=== PATIENT | male | born 1945 | race Caucasian/White ===

== ENCOUNTER → 2018-07-21 | Outpatient (CLI) | payer MEDICARE ==
--- NOTE | 2018-07-21 15:41 | REP ---
MRI brain without contrast: History: Dizziness and memory loss. Mild cognitive impairment. No comparison study. There is a report of a CT study of the brain from May 26, 2018 interpreted as showing no acute intracranial pathology with some cerebral volume loss. Technique: Axial and sagittal imaging planes are utilized for T1 and T2-weighted scans. Sequences include spin-echo, fast spin echo, FLAIR, and diffusion weighted sequences. MRI findings: No bony calvarial lesion is seen. Craniocervical junction and upper cervical cord are normal in appearance. There is no MR evidence of paranasal sinus disease. No intraorbital abnormality is appreciated. There is mild generalized cerebral atrophy. No vascular abnormalities observed. There is no evidence to suggest acute ischemia or other cause of restricted diffusion on diffusion-weighted scans. There are mild periventricular and subcortical white matter T2 hyperintensities on FLAIR and turbo spin echo T2 images consistent with small vessel changes. There is no evidence of intracranial mass. No extra-axial fluid collection or infarction is seen. Impression: Mild generalized volume loss and small vessel changes. No acute intracranial abnormality. Electronically Signed by Keyon Davey MD 07/21/2018 04:00 P
== END ==
LOC: M RAD 14:22
PROVIDERS: ATTEND Nurse Practitioner Family
DX: G31.84 Mild cognitive impairment of uncertain or unknown etiology (principal); R90.82 White matter disease, unspecified

== ENCOUNTER → 2020-02-28 | Outpatient (CLI) | payer MEDICARE ==
[~2020-02-28] MED LIST: ISOVUE-370 76% 100ML VIAL As Ordered ONE
--- NOTE | 2020-03-02 16:04 | REP ---
CONTRAST ENHANCED CHEST CT CLINICAL: History of prostate carcinoma. TECHNIQUE: Axial contrast enhanced images from the thoracic inlet to the upper abdomen using 75 cc Isovue-370 intravenous contrast material with coronal and sagittal reformations. FINDINGS: The lung paulino demonstrate chronic age related interstitial changes with superimposed scattered rounded nodules measuring up to approximately 12 mm and consistent with metastatic disease given the history of prostate cancer. No focal consolidation or effusion. No pneumothorax. Tracheobronchial tree is patent. Mediastinum demonstrates mild to moderate generalized adenopathy with subcarinal lymph nodes measuring up to approximately 2.2 cm short axis diameter. Atherosclerotic changes to the thoracic aorta and coronary arteries noted without aortic aneurysm or cardiomegaly. No pericardial effusion. Generalized sclerotic changes are noted throughout the thoracic spine and scattered throughout the bilateral ribs as well as involving portions of the proximal left humerus and left scapula again consistent with skeletal metastases based on the history of prostate cancer. IMPRESSION: * Innumerable pulmonary metastases measuring up to approximately 11-12 mm. * Diffuse skeletal metastatic disease. MTDD
== END ==
LOC: M RAD 17:50
PROVIDERS: ATTEND Internal Medicine Medical Oncology
DX: C61 Malignant neoplasm of prostate (principal); C79.51 Secondary malignant neoplasm of bone
CPT/HCPCS: 71260; Q9967

== ENCOUNTER → 2020-08-09 | Outpatient (CLI) | payer MEDICARE ==
[~2020-08-09] MED LIST changes: +GASTROGRAFIN SOLUTION 30ML (Q9963) As Ordered ONE
--- NOTE | 2020-08-09 13:46 | REP ---
INDICATION: PROSTATE CA, METS TO BONE CT 1ST NM 2ND. COMPARISON: 02/28/2020. TECHNIQUE: Chest CT with IV contrast. FINDINGS: There are new small bilateral pleural effusions as an interval change. There are new zones of atelectasis/infiltrate in the right middle lobe and lingula. There are multiple pulmonary nodules as previously. Some of the previous nodules are obscured by the infiltrates in the middle lobe and lingula. Some of the nodules may have resolved. No definite new nodules are identified. There is no mediastinal, hilar are or axillary lymph node enlargement. The mediastinal and bilateral hilar adenopathy identified previously has decreased. Thoracic aorta is unremarkable. Cardiac size normal. No pericardial effusion. Numerous blastic metastases are again identified throughout almost all of the skeletal structures of the chest. This is unchanged. IMPRESSION: There are new areas of infiltrate in the right middle lobe and right lower lobe. There are new small bilateral pleural effusions. There are numerous lung nodules bilaterally. No definite new nodules are identified. Some of the previous nodules are obscured by the infiltrates. The mediastinal and hilar adenopathy has significantly improved. Numerous blastic metastases are again identified almost all of the skeletal structures. <Electronically signed by Fermin Amador > 08/09/20 [id number]
--- NOTE | 2020-08-09 13:59 | REP ---
INDICATION: PROSTATE CA, METS TO BONE CT 1ST NM 2ND. COMPARISON: Abdomen/pelvis CT dated 02/02/2020. TECHNIQUE: Abdomen pelvis CT with IV and bowel contrast. FINDINGS: Within the visualized lower lung paulino there are small bilateral pleural effusions as an interval change. The hepatic parenchyma, gallbladder, pancreas and spleen are normal size, unremarkable and unchanged. The adrenals are unremarkable. There is a 7.2 cm right renal lower pole cyst containing septations with calcifications along some of the septations inferiorly in the cyst. These calcifications appear somewhat thickened. This is again a Bosniak type 3 renal cyst. The left kidney is unremarkable. There is no hydronephrosis or perinephric stranding. Abdominal aorta is unremarkable. There is no periaortic adenopathy or mass. The bowel and mesentery are unremarkable. Pelvis: On the prior study the prostate was enlarged with irregular margins. There is a soft tissue density in the prostatic bed today that has significantly decreased in size containing tiny radiodensities. This may represent postsurgical or postradiation change or combination. There is no pelvic adenopathy or ascites. The bladder is unremarkable. Numerous blastic skeletal metastases there are again noted throughout all of the skeletal structures. There is a cystic lesion containing dense material in the intertrochanteric region of the left hip, unchanged, possibly a cystic metastasis. IMPRESSION: There are new small bilateral pleural effusions. There is a Bosniak type 3 right renal cyst, unchanged. There are changes in the prostatic bed as described which could be postsurgical, postradiation or combination. Numerous blastic metastases are again identified. <Electronically signed by Fermin Amador > 08/09/20 [id number]
--- NOTE | 2020-08-09 14:08 | REP ---
INDICATION: PROSTATE CA, METS TO BONE CT 1ST NM 2ND. COMPARISON: None. TECHNIQUE/RADIOTRACER AND DOSE: The study is performed with 21.3 mCi of technetium 99 M labeled M DP. FINDINGS: There are innumerable foci of increased skeletal uptake in the right frontal calvarium, right facial bones likely angle of the mandible, throughout the spine including cervical spine thoracic spine lumbar spine, right distal clavicle and acromion process, left proximal humerus, multiple bilateral ribs, pelvis bilaterally and hips bilaterally. IMPRESSION: In numeral foci of skeletal uptake compatible with widespread skeletal metastatic disease. <Electronically signed by Fermin Amador > 08/09/20 [id number]
== END ==
LOC: M RAD 08:29
PROVIDERS: ATTEND Nurse Practitioner
DX: C61 Malignant neoplasm of prostate (principal); J90 Pleural effusion, not elsewhere classified; R91.8 Other nonspecific abnormal finding of lung field
CPT/HCPCS: 71260; 74177; 78306; A9503; Q9963; Q9967

== ENCOUNTER → 2020-11-29 | Outpatient (CLI) | payer MEDICARE ==
--- NOTE | 2020-11-29 11:53 | REP ---
INDICATION: STAGING METASTIC PROSTATE CA. COMPARISON: Multiple the latest 08/10/2019 TECHNIQUE: Standard helical technique after the intravenous administration of 100 cc Isovue 370. Oral bowel preparatory contrast was administered prior to the exam. FINDINGS: The liver, gallbladder, spleen, pancreas, adrenal glands, and kidneys are unchanged. Once again, there is a right renal cystic lesion which is unchanged. Dense calcifications are again seen along its stevenson. There is no measurable contrast-enhancement. The abdominal aorta and para-aortic regions are unchanged. There is no adenopathy. The bowel loops and the mesenteries are unchanged. Once again, there is a duodenal diverticulum. There is no intra-abdominal mass or adenopathy. There is no free fluid or free air. Bone window technique throughout the examination again shows diffuse widespread skeletal blastic metastasis. IMPRESSION: No significant change compared to the prior exam with findings as described above. There is a Bosniak class 2 F right renal cystic lesion which requires yearly follow-up for 5 years. There is diffuse widespread skeletal blastic metastasis. <Electronically signed by Jermaine Salas > 11/29/20 [id number]
--- NOTE | 2020-11-29 11:57 | REP ---
INDICATION: PROSTATE CA COMPARISON: Multiple the latest 08/09/2020 TECHNIQUE: Standard helical technique after the intravenous administration of 100 cc Isovue 370. FINDINGS: The mediastinum and pulmonary carina are stable. The small bilateral pleural effusions seen previously have resolved. There is no pericardial effusion. The imaged osseous structures again shows diffuse widespread blastic skeletal metastasis. Evaluation of the lung paulino shows an unchanged asymmetric density in the right middle lobe peripherally. The asymmetric lingular density seen previously has improved. No new abnormal nodules, masses, or opacities have developed. IMPRESSION: 1. Resolved pleural effusions. 2. Improved lung paulino as described above. 3. Other findings as described above. <Electronically signed by Jermaine Salas > 11/29/20 [id number]
--- NOTE | 2020-11-29 14:54 | REP ---
INDICATION: PROSTATE CA. COMPARISON: Comparison radionuclide bone scan study is from August 09, 2020.. TECHNIQUE/RADIOTRACER AND DOSE: 22.0 mCi of Technetium-99m MDP was injected and standard whole-body bone scanning is acquired. FINDINGS: There are numerous foci of intensely increased uptake focally dispersed in the axial skeleton consistent with fairly widespread skeletal metastatic disease. The pattern is similar to the prior study of August 09, 2020. In fact, on detailed review, I cannot identify any new lesions in the existing lesions are unchanged in avidity and a relative size. There is uptake in bilateral kidneys and in the urinary bladder. IMPRESSION: Widespread skeletal metastatic disease pattern scintigraphically unchanged from the August 09, 2020 study.. <Electronically signed by Diaz Davey > 11/29/20 [id number]
== END ==
LOC: M RAD 09:20
PROVIDERS: ATTEND Internal Medicine Medical Oncology
DX: C61 Malignant neoplasm of prostate (principal)
CPT/HCPCS: 71260; 74177; 78306; A9503; Q9963; Q9967

== ENCOUNTER 2020-12-09 21:07 | Inpatient (IN) | payer MEDICARE ==
[~2020-12-09] VITALS: Ht 172.7 cm; Wt 80.0 kg
[2020-12-09] MEDS ORDERED: ARIC1TAB2 PO (21:29)
[2020-12-09] MEDS ORDERED: MIRA3350 PO (21:29)
[2020-12-09] MEDS ORDERED: XGEVINJ SC (21:29)
[2020-12-09] MEDS ORDERED: ZINC1TAB2 PO (21:29)
[2020-12-09] MEDS ORDERED: DULO1CAP4 PO (21:29)
[2020-12-09] MEDS ORDERED: CENT1TAB PO (21:29)
[2020-12-09] MEDS ORDERED: HYDR-3713 PO (21:29)
[2020-12-09] MEDS ORDERED: ESOM1CAP5 PO (21:29)
[2020-12-09] MEDS ORDERED: MAGN200T PO (21:29)
[2020-12-09] MEDS ORDERED: LUPR45IN IM (21:29)
[2020-12-09] MEDS ORDERED: ATOR1TAB21 PO (21:29)
[2020-12-09] MEDS ORDERED: NAME10TA PO (21:29)
[2020-12-09] MEDS ORDERED: VITA500C24 PO (21:29)
[2020-12-09] MEDS ORDERED: PROBCAP14 PO (21:29)
[2020-12-09] MEDS ORDERED: FLOM0.4C39 PO (21:29)
[2020-12-09] MEDS ORDERED: MORP-69 PO (21:29)
[2020-12-09] MEDS ORDERED: CO Q100C2 PO (21:29)
[2020-12-09] MEDS ORDERED: ASPI81TA26 PO (21:29)
[2020-12-09] MEDS ORDERED: FLUT15.820 NARES (21:29)
[2020-12-09 22:25] LABS: BASO # 0.1 10^3/uL (0.0-0.2); BASO % 0.6 % (0.0-1.0); EOS % 0.4 % (0.0-3.0); HEMATOCRIT 34.7 % (42.0-52.0); HEMOGLOBIN 11.7 g/dl (13.5-17.5); LYMPH # 1.1 10^3/uL (1.5-5.0); LYMPH % 14.2 % (24.0-44.0); MEAN CORPUSCULAR HEMOGLOBIN 30.3 pg (27.0-33.0); MEAN CORPUSCULAR HGB CONC 33.7 g/dl (32.0-36.5); MEAN CORPUSCULAR VOLUME 89.9 fl (80.0-96.0); MONO % 12.6 % (2.0-8.0); NEUTROPHILS # 5.8 10^3/uL (1.5-8.5); NEUTROPHILS % 71.8 % (36.0-66.0); PLATELET COUNT, AUTOMATED 191 10^3/uL (150-450); RED BLOOD COUNT 3.86 10^6/uL (4.30-6.10)
[2020-12-09 23:03] LABS: ALBUMIN 3.7 GM/DL (3.2-5.2); ALT/SGPT 40 U/L (12-78); BILIRUBIN,DIRECT 0.2 MG/DL (0.0-0.2); BILIRUBIN,TOTAL 0.5 MG/DL (0.2-1.0); BLOOD UREA NITROGEN 23 MG/DL (7-18); CALCIUM LEVEL 8.2 MG/DL (8.8-10.2); CARBON DIOXIDE LEVEL 28 MEQ/L (21-32); CHLORIDE LEVEL 102 MEQ/L (98-107); CK-MB VALUE MASS < 1.0 NG/ML (<3.6); CPK CREATINE PHOSPHOKINASE 108 U/L (39-308); CREATININE FOR GFR 1.01 MG/DL (0.70-1.30); GLOMERULAR FILTRATION RATE > 60.0 (>42); GLUCOSE, FASTING 139 MG/DL (70-100); MB/CK RELATIVE INDEX 0.93 (< OR =4); POTASSIUM SERUM 4.3 MEQ/L (3.5-5.1); SODIUM LEVEL 136 MEQ/L (136-145); THYROID STIMULATING HORMONE 0.955 uIU/ML (0.358-3.740); TROPONIN I < 0.02 NG/ML (< 0.10)
[2020-12-09] MEDS ORDERED: IBUPROFEN 600MG TAB PO ONE (23:10)
--- NOTE | 2020-12-10 00:27 | REPVR ---
PROCEDURE INFORMATION: Exam: CT Head Without Contrast Exam date and time: 12/09/2020 11:38 PM Age: 75 years old Clinical indication: Pain; Headache not specified; Additional info: Headache lethargy TECHNIQUE: Imaging protocol: Computed tomography of the head without contrast. Radiation optimization: All CT scans at this facility use at least one of these dose optimization techniques: automated exposure control; mA and/or kV adjustment per patient size (includes targeted exams where dose is matched to clinical indication); or iterative reconstruction. COMPARISON: 1. MRI-Brain without Contrast 2018-07-21 14:39 2. NM Bone Scan Whole Body 2020-11-29 13:07 FINDINGS: Brain: Diffuse mild cerebral age related volume loss. Mild patchy low attenuation in the white matter compatible with mild chronic small vessel ischemic disease. No midline shift, mass, fluid collection, or evidence of hemorrhage. Cerebral ventricles: Ventricular enlargement proportional to volume loss. Paranasal sinuses: Visualized sinuses are unremarkable. No fluid levels. Mastoid air cells: Visualized mastoid air cells are well aerated. Bones/joints: Vague area of increased sclerosis within the right frontal bone appears unchanged. Soft tissues: Unremarkable. IMPRESSION: 1. Mild involutional changes, no acute intracranial abnormality. 2. Vague area of increased sclerosis within the right frontal bone appears unchanged. Correlate to exclude the possibility of blastic metastases. Electronically signed by: Demetrio Sosa On 12/10/2020 00:27:35 AM
--- NOTE | 2020-12-10 00:28 | REPVR ---
PROCEDURE INFORMATION: Exam: XR Chest Exam date and time: 12/09/2020 11:37 PM Age: 75 years old Clinical indication: Other: Fever cough TECHNIQUE: Imaging protocol: XR of the chest. Views: 2 views. COMPARISON: 1. CT Chest with contrast 2020-11-29 11:[address] Chest with contrast 2020-08-09 10:[address] Chest with contrast 2020-02-28 18:37 4. NM Bone Scan Whole Body 2020-11-29 13:07 FINDINGS: Lungs: Dependent subsegmental pulmonary atelectasis. Mild peripheral lingular and middle lobe opacities. Pleural spaces: Unremarkable. No pleural effusion. No pneumothorax. Heart/Mediastinum: Unremarkable. No cardiomegaly. Bones/joints: Diffuse sclerotic bones, correlate for diffuse skeletal metastases. IMPRESSION: 1. Mild peripheral lingular and middle lobe opacities. 2. Diffuse sclerotic bones, correlate for diffuse skeletal metastases. Electronically signed by: Demetrio Sosa On 12/10/2020 00:28:23 AM
[2020-12-10] MEDS ORDERED: cefTRIAXone SOD 1 GM in D5W MINI-BAG PLUS 50 ML IV ONE (00:35)
[2020-12-10] MEDS ORDERED: IPRATROPIUM 0.5MG/ALBUTEROL 2.5MG INH SOL UD 3ML (DUONEB) NEB PRN (00:45)
[2020-12-10] MEDS ORDERED: DULO30CA47 PO (01:01)
[2020-12-10] MEDS ORDERED: ATEN25TA PO (01:07)
[2020-12-10] MEDS ORDERED: FURO40TA2 PO (01:07)
[2020-12-10] MEDS ORDERED: VIAC1CHW PO (01:07)
[2020-12-10] MEDS ORDERED: MONT10TA10 PO (01:07)
[2020-12-10] MEDS ORDERED: FAMO40TA3 PO (01:07)
[2020-12-10] MEDS ORDERED: SENN-23 PO (01:07)
--- NOTE | 2020-12-10 01:38 | HPEPDOC ---
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 Patient states that his symptoms began approx 3 days ago with sore throat and nonproductive cough. Patient states that his sore throat has improved some but is still having his cough and has developed progressive weakness and today his family noted him to have fevers. Patient states that he has recently traveled to his family camp for a day and was at the fair last week, however cannot explicitly name any sick contacts. Patient, at the time of my exam, denies productive cough, hemoptysis, sob, chest pain, chest tightness, abd pain, n/v/d/c, dysuria, recent falls, lower leg edema. Patient found to have lingula consolidation on chest x-ray in the ED.] PAST MEDICAL HISTORY: 1. [See HPI PAST SURGICAL HISTORY: 1. [B/l cataract removal]. 2. [Cardiac stent placement]. 3. [Prostate biopsy]. SOCIAL HISTORY: Tobacco use:[Denies] ETOH: [Denies] Illicit drug use: [Denies] FAMILY HISTORY: Reviewed - none pertinent ALLERGIES: Please see below. REVIEW OF SYSTEMS: CONSTITUTIONAL: [Denies rigors, dizziness]. HEENT: [See HPI]. CARDIOVASCULAR: [See HPI]. RESPIRATORY: [See HPI]. GASTROINTESTINAL: [See HPI]. GENITOURINARY: [See HPI]. SKIN: [Denies rash]. MUSCULOSKELETAL: [Denies acute joint/back pain]. NEUROLOGICAL: [Denies syncope, paresthesias]. ENDOCRINE: [Hx of DM]. HEMATOLOGIC/LYMPHATIC: [Hx of metastatic disease]. HOME MEDICATIONS: Please see below. PHYSICAL EXAMINATION: VITAL SIGNS: Please see below. GENERAL APPEARANCE: [This is an alert and oriented 75 y/o male who is pleasantly confused at times. Patient does not appear to be in any respiratory distress.]. HEENT: [No mass or lesion. EOMI. no scleral icterus. Nares patent. Oral mucosa moist]. CARDIOVASCULAR: [Regular rate, rhythm. No murmurs, rubs, gallops]. LUNGS: [Good air flow b/l. No wheezing, rales, rhonchi]. ABDOMEN: [Soft, nontender]. MUSCULOSKELETAL: [No joint deformity]. EXTREMITIES: [Trace edema to b/l lower extremities. No overlying skin changes. Pulses intact.]. NEUROLOGICAL: [Speech clear. A+Ox3 but confused at times. No focal deficits]. PSYCHIATRIC: [Mood and affect appear appropriate.]. LABORATORY DATA: See below. IMAGING: [CXR: FINDINGS: Lungs: Dependent subsegmental pulmonary atelectasis. Mild peripheral lingular and middle lobe opacities. Pleural spaces: Unremarkable. No pleural effusion. No pneumothorax. Heart/Mediastinum: Unremarkable. No cardiomegaly. Bones/joints: Diffuse sclerotic bones, correlate for diffuse skeletal metastases. IMPRESSION: 1. Mild peripheral lingular and middle lobe opacities. 2. Diffuse sclerotic bones, correlate for diffuse skeletal metastases. Head CT: FINDINGS: Brain: Diffuse mild cerebral age related volume loss. Mild patchy low attenuation in the white matter compatible with mild chronic small vessel ischemic disease. No midline shift, mass, fluid collection, or evidence of hemorrhage. Cerebral ventricles: Ventricular enlargement proportional to volume loss. Paranasal sinuses: Visualized sinuses are unremarkable. No fluid levels. Mastoid air cells: Visualized mastoid air cells are well aerated. Bones/joints: Vague area of increased sclerosis within the right frontal bone appears unchanged. Soft tissues: Unremarkable. IMPRESSION: 1. Mild involutional changes, no acute intracranial abnormality. 2. Vague area of increased sclerosis within the right frontal bone appears unchanged. Correlate to exclude the possibility of blastic metastases. ] MICROBIOLOGY: Please see below. ASSESSMENT: [This is a 75 y/o male with a pmh of stage IV prostate ca s/p chemo currently on hormonal therapy, asthma, cad s/p stent placement dm and asthma who presents to the ED with his daughter with cc of fevers, weakness and cough x3 days. Chest x ray performed in the ED is showing a community acquired pne umonia.]. . PLAN: 1. [CAP - Respiratory panel + for RSV, so potentially viral pneumonia - Only sirs criteria in the patient is temperature with tmax of 101.1. No need for fluid boluses at this time - Rocephin and azithromycin given in ed. Will switch to rocephin and doxy on the floor - tylenol for fevers - Blood cultures taken - Incentive spirometry - no need for supplemental o2 at this time - admit to med surg for iv abx 2. Metastatic prostate ca - Patient currently on hormonal therapy every 3 months outpatient - Can continue norco, morphine for pain - continue flomax 3. Asthma - Patient does not appear to be in acute exacerbation - Continue at home albuterol, flonase, montelukast - duonebs as needed 4. HTN - continue atenolol, furosemide 5. GERD - continue famotidine, omeprazole 6. Dementia - continue donepezil, memantine 7. Depression/anxiety - continue cymbalta DVT prophylaxis - lovenox ordered]. Vital Signs Vital Signs Date Time Temp Pulse Resp B/P (MAP) Pulse Ox O2 Delivery O2 Flow Rate FiO2 12/10/20 00:52 99.3 81 18 95 Room Air 12/10/20 00:45 152/67 (95) Laboratory Data Labs 24H Laboratory Tests 2 12/09/20 22:02: Immature Granulocyte % (Auto) 0.4, Neutrophils (%) (Auto) 71.8H, Lymphocytes (%) (Auto) 14.2L, Monocytes (%) (Auto) 12.6H, Eosinophils (%) (Auto) 0.4, Basophils (%) (Auto) 0.6, Neutrophils # (Auto) 5.8, Lymphocytes # (Auto) 1.1L, Monocytes # (Auto) 1.0H, Eosinophils # (Auto) 0.0, Basophils # (Auto) 0.1, Nucleated Red Blood Cells % (auto) 0.0, Anion Gap 6L, Glomerular Filtration Rate > 60.0, Calcium Level 8.2L, Total Bilirubin 0.5, Direct Bilirubin 0.2, Aspartate Amino Transf (AST/SGOT) 35, Alanine Aminotransferase (ALT/SGPT) 40, Alkaline Phosphatase 104, Total Creatine Kinase 108, Creatine Kinase MB < 1.0, Creatine Kinase MB Relative Index 0.93, Troponin I < 0.02, Total Protein 7.0, Albumin 3.7, Albumin/Globulin Ratio 1.1, Thyroid Stimulating Hormone (TSH) 0.955 12/09/20 22:34: POC Group A Strep Rapid Screen NEGATIVE 12/09/20 23:26: Urine Color YELLOW, Urine Appearance CLEAR, Urine pH 6.0, Urine Specific [place] 1.023, Urine Protein NEGATIVE, Urine Glucose (UA) 1+H, Urine Ketones NEGATIVE, Urine Blood NEGATIVE, Urine Nitrite NEGATIVE, Urine Bilirubin NEGATIVE, Urine Urobilinogen 2.0H, Urine Leukocyte Esterase NEGATIVE, Urine WBC (Auto) 1, Urine RBC (Auto) 3, Urine Hyaline Casts (Auto) 0, Urine Bacteria (Auto) NEGATIVE, Urine Squamous Epithelial Cells 0, Urine Transitional Epithelial Cells <1, Urine Mucus (Auto) SMALL, Urine Sperm (Auto) CBC/BMP Laboratory Tests 12/09/20 22:02 Microbiology Microbiology 12/09/20 Respiratory Virus Panel (PCR) ([facility]) - Final, Complete Respiratory Syncytial Virus 12/09/20 Blood Culture, Received Pending 12/09/20 Blood Culture, Received Pending Home Medications Scheduled Ascorbic Acid (Vitamin C) 500 Mg Capsule, 500 MG PO DAILY Aspirin (Aspirin EC) 81 Mg Tablet.dr, 81 MG PO QHS Atenolol (Atenolol) 25 Mg Tablet, 12.5 MG PO QHS Atorvastatin Calcium (Atorvastatin Calcium) 20 Mg Tablet, 20 MG PO QHS Calcium Carb/Vitamin D3/Vit K1 (Viactiv 650 mg-12.5 Mcg Chew) 1 Each Tab.chew, 1 EACH PO BID Donepezil HCl (Aricept) 10 Mg Tablet, 10 MG PO QHS Duloxetine HCl (Duloxetine HCl) 30 Mg Capsule.dr, 30 MG PO QHS Esomeprazole Magnesium (Esomeprazole Magnesium) 40 Mg Capsule.dr, 40 MG PO DAILY Famotidine (Famotidine) 40 Mg Tablet, 40 MG PO QPM Fluticasone Propionate (Fluticasone Propionate) 15.8 Ml [place].susp, 2 SPRAY NARES DAILY Furosemide (Furosemide) 40 Mg Tablet, 40 MG PO DAILY Lactobacillus Acidophilus (Probiotic) 1 Each Capsule, 1 CAP PO DAILY Leuprolide Acetate (Lupron Depot) 45 Mg Syringekit, 45 MG IM zheng three months Magnesium (Magnesium) 200 Mg Tablet, 400 MG PO QPM Memantine HCl (Namenda) 10 Mg Tablet, 10 MG PO DAILY Montelukast Sodium (Montelukast Sodium) 10 Mg Tablet, 10 MG PO QHS Multivit-Min/FA/Lycopen/Lutein (Centrum Silver Tablet) 1 Each Tablet, 1 TAB PO DAILY Sennosides/Docusate Sodium (Senna-S Tablet) 1 Each Tablet, 1 TAB PO QAM Tamsulosin HCl (Flomax) 0.4 Mg Capsule, 0.4 MG PO QPM Ubidecarenone (Co Q-10) 100 Mg Capsule, 100 MG PO DAILY Zinc (Zinc) 50 Mg Tablet, 50 MG PO DAILY Scheduled PRN Hydrocodone/Acetaminophen (Hydrocodone-Acetamin 5-325 mg) 1 Each Tablet, 1 TAB PO Q4-6HP PRN for pain Morphine Sulfate (Morphine Sulfate ER) 15 Mg Tablet.er, 15 MG PO QHS PRN for pain Polyethylene Glycol 3350 (Miralax) 119 Gm Powder, 17 GM PO DAILY PRN for CONSTIPATION dilute in 8 ounces of water or juice Allergies Coded Allergies: lidocaine (Verified Allergy, Severe, anaphylaxsis, 12/09/20) A-FIB/CHADSVASC A-FIB History Current/History of A-Fib/PAF?: No MYA NOLASCO Dec 10, 2020 01:38
[2020-12-10] MEDS ORDERED: MORPHINE 15 MG SA TAB PO PRN (01:40)
[2020-12-10] MEDS ORDERED: MIRALAX *UNIT DOSE* 17GM PACKET PO PRN (01:40)
[2020-12-10] MEDS ORDERED: NORCO, ANEXSIA 5/325MG TABLET (HYDROcodone/ACETAMINOPHEN) PO PRN (01:40)
[2020-12-10] MEDS ORDERED: AZITHROMYCIN INJ 500 MG, VIAL MATE ADAPTER 1 EACH in NS 250 ML IV ONE (02:00)
[2020-12-10] MEDS: ASPIRIN 81MG ENTERIC TABLET PO SCH ×2 (03:48→22:07)
[2020-12-10] MEDS: FAMOTIDINE 20 MG TAB PO SCH ×2 (03:48→22:07)
[2020-12-10] MEDS: DOXYCYCLINE HYCLATE 100 MG in D5W MINI-BAG PLUS 100 ML IV SCH ×2 (03:48→15:58)
[2020-12-10] MEDS: DULoxetine 30 MG CAP (CYMBALTA) PO SCH ×2 (03:49→22:07)
[2020-12-10] MEDS: ATORVASTATIN 20 MG TAB PO SCH ×2 (03:49→22:07)
[2020-12-10] MEDS: DONEPEZIL 5 MG TAB PO SCH ×2 (03:49→22:07)
[2020-12-10] MEDS: TAMSULOSIN 0.4 MG CAP PO SCH ×2 (03:49→22:07)
[2020-12-10] MEDS: MONTELUKAST 10 MG TAB PO SCH ×2 (03:49→22:07)
[2020-12-10] MEDS: ATENOLOL 12.5MG PER 1/2 TABLET PO SCH ×2 (04:36→22:07)
[2020-12-10 06:00] VITALS: BP 151/67
[2020-12-10 06:01] LABS: BASO % 0.4 % (0.0-1.0); EOS % 0.4 % (0.0-3.0); HEMATOCRIT 31.1 % (42.0-52.0); HEMOGLOBIN 10.5 g/dl (13.5-17.5); LYMPH # 0.9 10^3/uL (1.5-5.0); MEAN CORPUSCULAR HEMOGLOBIN 30.2 pg (27.0-33.0); MEAN CORPUSCULAR HGB CONC 33.8 g/dl (32.0-36.5); MEAN CORPUSCULAR VOLUME 89.4 fl (80.0-96.0); MONO # 0.8 10^3/uL (0.0-0.8); NEUTROPHILS # 3.3 10^3/uL (1.5-8.5); PLATELET COUNT, AUTOMATED 155 10^3/uL (150-450); RED BLOOD COUNT 3.48 10^6/uL (4.30-6.10)
[2020-12-10 06:12] LABS: INR 1.06
[2020-12-10 06:13] LABS: PARTIAL THROMBOPLASTIN TIME 29.7 SECONDS (24.2-38.5)
[2020-12-10 06:26] LABS: BLOOD UREA NITROGEN 21 MG/DL (7-18); CALCIUM LEVEL 7.7 MG/DL (8.8-10.2); CARBON DIOXIDE LEVEL 27 MEQ/L (21-32); CHLORIDE LEVEL 106 MEQ/L (98-107); CREATININE FOR GFR 0.86 MG/DL (0.70-1.30); GLOMERULAR FILTRATION RATE > 60.0 (>42); GLUCOSE, FASTING 133 MG/DL (70-100); POTASSIUM SERUM 3.7 MEQ/L (3.5-5.1); SODIUM LEVEL 139 MEQ/L (136-145)
[2020-12-10] MEDS: IPRATROPIUM 0.5MG/ALBUTEROL 2.5MG INH SOL UD 3ML (DUONEB) NEB SCH ×4 (07:10→20:30)
[2020-12-10] MEDS: ENOXAPARIN 40MG/0.4ML SYRINGE (J1650 PER 10MG) SC SCH (09:42)
[2020-12-10] MEDS: FUROSEMIDE 40 MG TAB PO SCH (09:44)
[2020-12-10] MEDS: SENOKOT S TAB PO SCH (09:44)
[2020-12-10] MEDS: MEMANTINE 5MG TABLET (NAMENDA) PO SCH (09:44)
[2020-12-10] MEDS: ASCORBIC ACID 500 MG TAB PO SCH (09:44)
[2020-12-10] MEDS: OMEPRAZOLE 20 MG CAP PO SCH (09:44)
[2020-12-10] MEDS: FLUTICASONE PROP 0.05% NASAL SPRAY 16 GM (FLONASE) NARES SCH (11:47)
[2020-12-10 14:00] VITALS: BP 140/75
[2020-12-10] MEDS: ACETAMINOPHEN TAB 650MG DOSE (2X325MG) PO PRN (14:30)
--- NOTE | 2020-12-10 17:30 | IPNPDOC ---
Subjective Date Seen The patient was seen on 12/10/20. Subjective Chief Complaint/HPI Mr. Puckett is a 75 year old male with stage IV prostate CA s/p chemo on hormonal therapy, asthma, DM, and asthma who presents for fever, weakness, and cough. This morning, he denies any chest pain or dyspnea. This afternoon around 2PM, patient had another fever of 101.6 Objective Physical Examination General Exam: Positive: Alert, Cooperative Eye Exam: Negative: Sclera icteric ENT Exam: Positive: Atraumatic Neck Exam: Positive: Supple Chest Exam: Positive: Clear to auscultation Heart Exam: Positive: Rate Normal, Regular Rhythm Abdomen Exam: Positive: Normal bowel sounds, Soft; Negative: Tenderness Extremity Exam: Negative: Edema Neuro Exam: Positive: Normal Speech Psych Exam: Positive: Mood NL Assessment /Plan Assessment Mr. Puckett is a 75 year old male with stage IV prostate CA s/p chemo on hormonal therapy, asthma, DM, and asthma who presents for fever, weakness, and cough. Patient's RSV was positive. CXR demonstrated opacities, so patient was admitted for antibiotics. Will order a procalcitonin for possible de-escalation of antibiotics. Otherwise, ordered PT for ambulation. Plan/VTE VTE Prophylaxis Ordered?: Yes Plan 1. Pneumonia -CAP vs RSV pneumonia -No leukocytosis or hypoxia, but fever and CXR opacity -Pending procalcitonin -Continue Rocephin and doxycycline day 1. 2. Metastatic prostate CA -Continue norco and morphine for pain control -Continue tamsulosin -Patient to receiving hormonal therapy every 3 months as outpatient 3. Asthma -Stable -Continue Flonase and montelukast -PRN duonebs 4. Hypertension -Continue atenolol and furosemide 5. GERD -Continue famotidine and omeprazole 6. Dementia -Continue donepezil and memantine 7. Depression/anxiety -Continue Cymbalta 8. DVT ppx -Lovenox Disposition: Pending improvement in fever and procalcitonin results VS, I&O, 24H, Fishbone Vital Signs/I&O Vital Signs Date Time Temp Pulse Resp B/P (MAP) Pulse Ox O2 Delivery O2 Flow Rate FiO2 12/10/20 15:20 100.9 12/10/20 14:00 102 18 140/75 (96) 93 Room Air I&O- Last 24 Hours up to 6 AM 12/10/20 06:00 Intake Total 665 ml Balance 665 ml Laboratory Data 24H LABS Laboratory Tests 2 12/09/20 22:02: Immature Granulocyte % (Auto) 0.4, Neutrophils (%) (Auto) 71.8H, Lymphocytes (%) (Auto) 14.2L, Monocytes (%) (Auto) 12.6H, Eosinophils (%) (Auto) 0.4, Basophils (%) (Auto) 0.6, Neutrophils # (Auto) 5.8, Lymphocytes # (Auto) 1.1L, Monocytes # (Auto) 1.0H, Eosinophils # (Auto) 0.0, Basophils # (Auto) 0.1, Nucleated Red Blood Cells % (auto) 0.0, Anion Gap 6L, Glomerular Filtration Rate > 60.0, Calcium Level 8.2L, Total Bilirubin 0.5, Direct Bilirubin 0.2, Aspartate Amino Transf (AST/SGOT) 35, Alanine Aminotransferase (ALT/SGPT) 40, Alkaline Phosphatase 104, Total Creatine Kinase 108, Creatine Kinase MB < 1.0, Creatine Kinase MB Relative Index 0.93, Troponin I < 0.02, Total Protein 7.0, Albumin 3.7, Albumin/Globulin Ratio 1.1, Thyroid Stimulating Hormone (TSH) 0.955 12/09/20 22:34: POC Group A Strep Rapid Screen NEGATIVE 12/09/20 23:26: Urine Color YELLOW, Urine Appearance CLEAR, Urine pH 6.0, Urine Specific [place] 1.023, Urine Protein NEGATIVE, Urine Glucose (UA) 1+H, Urine Ketones NEGATIVE, Urine Blood NEGATIVE, Urine Nitrite NEGATIVE, Urine Bilirubin NEGATIVE, Urine Urobilinogen 2.0H, Urine Leukocyte Esterase NEGATIVE, Urine WBC (Auto) 1, Urine RBC (Auto) 3, Urine Hyaline Casts (Auto) 0, Urine Bacteria (Auto) NEGATIVE, Urine Squamous Epithelial Cells 0, Urine Transitional Epithelial Cells <1, Urine Mucus (Auto) SMALL, Urine Sperm (Auto) 12/10/20 05:45: 12/10/20 05:47: Immature Granulocyte % (Auto) 0.2, Neutrophils (%) (Auto) 66.0, Lymphocytes (%) (Auto) 18.0L, Monocytes (%) (Auto) 15.0H, Eosinophils (%) (Auto) 0.4, Basophils (%) (Auto) 0.4, Neutrophils # (Auto) 3.3, Lymphocytes # (Auto) 0.9L, Monocytes # (Auto) 0.8, Eosinophils # (Auto) 0.0, Basophils # (Auto) 0.0, Nucleated Red Blood Cells % (auto) 0.0, Prothrombin Time 14.0, Prothromb Time International Ratio 1.06, Activated Partial Thromboplast Time 29.7, Anion Gap 6L, Glomerular Filtration Rate > 60.0, Calcium Level 7.7L CBC/BMP Laboratory Tests 12/09/20 22:02 12/10/20 05:47 Microbiology Microbiology 12/09/20 Respiratory Virus Panel (PCR) ([facility]) - Final, Complete Respiratory Syncytial Virus 12/09/20 Blood Culture, Received Pending 12/09/20 Blood Culture, Received Pending YOMAIRA MARQUEZ DO Dec 10, 2020 17:30
[2020-12-10 22:00] VITALS: BP 145/71
[2020-12-11] MEDS ORDERED: cefTRIAXone SOD 2 GM in D5W MINI-BAG PLUS 50 ML IV SCH (01:00)
[2020-12-11] MEDS: DOXYCYCLINE HYCLATE 100 MG in D5W MINI-BAG PLUS 100 ML IV SCH (04:32)
[2020-12-11 06:00] VITALS: BP 119/59
[2020-12-11 06:09] LABS: BASO % 0.4 % (0.0-1.0); HEMATOCRIT 29.6 % (42.0-52.0); HEMOGLOBIN 9.9 g/dl (13.5-17.5); LYMPH # 0.8 10^3/uL (1.5-5.0); LYMPH % 14.6 % (24.0-44.0); MEAN CORPUSCULAR HEMOGLOBIN 29.8 pg (27.0-33.0); MEAN CORPUSCULAR HGB CONC 33.4 g/dl (32.0-36.5); MEAN CORPUSCULAR VOLUME 89.2 fl (80.0-96.0); MONO # 0.6 10^3/uL (0.0-0.8); MONO % 11.4 % (2.0-8.0); NEUTROPHILS # 3.8 10^3/uL (1.5-8.5); NEUTROPHILS % 73.2 % (36.0-66.0); PLATELET COUNT, AUTOMATED 150 10^3/uL (150-450); RED BLOOD COUNT 3.32 10^6/uL (4.30-6.10); WHITE BLOOD COUNT 5.2 10^3/uL (4.0-10.0)
[2020-12-11 06:33] LABS: BLOOD UREA NITROGEN 17 MG/DL (7-18); CALCIUM LEVEL 7.3 MG/DL (8.8-10.2); CARBON DIOXIDE LEVEL 25 MEQ/L (21-32); CHLORIDE LEVEL 104 MEQ/L (98-107); CREATININE FOR GFR 0.79 MG/DL (0.70-1.30); GLOMERULAR FILTRATION RATE > 60.0 (>42); GLUCOSE, FASTING 150 MG/DL (70-100); POTASSIUM SERUM 3.7 MEQ/L (3.5-5.1); SODIUM LEVEL 137 MEQ/L (136-145)
[2020-12-11] MEDS: IPRATROPIUM 0.5MG/ALBUTEROL 2.5MG INH SOL UD 3ML (DUONEB) NEB SCH ×3 (07:30→16:00)
[2020-12-11] MEDS: OMEPRAZOLE 20 MG CAP PO SCH (08:25)
[2020-12-11] MEDS: ASCORBIC ACID 500 MG TAB PO SCH (08:25)
[2020-12-11] MEDS: SENOKOT S TAB PO SCH (08:25)
[2020-12-11] MEDS: ENOXAPARIN 40MG/0.4ML SYRINGE (J1650 PER 10MG) SC SCH (08:25)
[2020-12-11] MEDS: FLUTICASONE PROP 0.05% NASAL SPRAY 16 GM (FLONASE) NARES SCH (08:26)
[2020-12-11] MEDS: MEMANTINE 5MG TABLET (NAMENDA) PO SCH (08:26)
[2020-12-11] MEDS: FUROSEMIDE 40 MG TAB PO SCH (08:26)
[2020-12-11] MEDS: ACETAMINOPHEN TAB 650MG DOSE (2X325MG) PO PRN (08:27)
[2020-12-11] MEDS ORDERED: DOXY100T PO (11:15)
[2020-12-11] MEDS ORDERED: CEFD300CAP PO (11:15)
[2020-12-11] MEDS ORDERED: CALC200T15 PO (15:37)
--- NOTE | 2020-12-11 15:45 | DS.PDOC ---
Discharge Summary General Date of Admission Dec 10, 2020 at 00:40 Date of Discharge Dec 11, 2020 Discharge Summary PROCEDURES PERFORMED DURING STAY: None ADMITTING DIAGNOSES: 1. Pneumonia 2. Metastatic prostate CA with mets to bones (receiving hormonal therapy) 3. Asthma 4. Hypertension 5. GERD 6. Dementia 7. Depression/anxiety DISCHARGE DIAGNOSES: 1. Viral pneumonia 2. Metastatic prostate CA with mets to bones (receiving hormonal therapy) 3. Asthma 4. Hypertension 5. GERD 6. Dementia 7. Depression/anxiety COMPLICATIONS/CHIEF COMPLAINT: Pneumonia. HISTORY OF PRESENT ILLNESS: Copied from admitting provider's H&P " This is a 75 y/o male with a pmh of stage IV prostate ca s/p chemo currently on hormonal therapy, asthma, cad s/p stent placement dm and asthma who presents to the ED with his daughter with cc of fevers, weakness and cough x3 days. Patient states that his symptoms began approx 3 days ago with sore throat and nonproductive cough. Patient states that his sore throat has improved some but is still having his cough and has developed progressive weakness and today his family noted him to have fevers. Patient states that he has recently traveled to his family camp for a day and was at the fair last week, however cannot explicitly name any sick contacts. Patient, at the time of my exam, denies productive cough, hemoptysis, sob, chest pain, chest tightness, abd pain, n/v/d/c, dysuria, recent falls, lower leg edema. Patient found to have lingula consolidation on chest x-ray in the ED " HOSPITAL COURSE: During hospitalization, patient denied any chest pain or dyspnea. He did have another temperature of 101.6, but no leukocytosis or hypoxia. Ordered procalcitonin which was negative. Unlikely to be a bacterial pneumonia. De-escalated antibiotics from IV Ceftriaxone and IV doxycycline to PO doxycycline to cover for atypical pneumonia. Otherwise, patient is a hdz and used to be very active. Physical therapy worked with the patient and recommended ARU. Patient feels ready and will be discharged to ARU today. DISCHARGE MEDICATIONS: Please see below. ALLERGIES: Please see below. PHYSICAL EXAMINATION ON DISCHARGE: VITAL SIGNS: Please see below. GENERAL: Comfortable, in no apparent distress. HEENT: EOMI, sclera clear. NECK: Supple. RESPIRATORY: Lungs clear to auscultation bilaterally, no rales, wheeze or rhonchi. CARDIOVASCULAR: Regular rate and rhythm. ABDOMEN: Soft, nontender, no guarding or rebound tenderness. Normal bowel sounds. MUSCLE SKELETAL: No pitting edema PSYCHOLOGICAL: Normal mood and affect LABORATORY DATA: Please see below. IMAGING: Radiologist interpretation CXR 1. Mild peripheral lingular and middle lobe opacities. 2. Diffuse sclerotic bones, correlate for diffuse skeletal metastases. CT head 1. Mild involutional changes, no acute intracranial abnormality. 2. Vague area of increased sclerosis within the right frontal bone appears unchanged. Correlate to exclude the possibility of blastic metastases. PROGNOSIS: Good ACTIVITY: As tolerated. DIET: 2gm sodium DISCHARGE PLAN: Discharge to ARU DISPOSITION: Discharge to ARU DISCHARGE INSTRUCTIONS: 1. Follow up with PCP 1 week from discharge from ARU DISCHARGE CONDITION: Stable. Total time spent on discharge planning, discharge summary, and medication reconciliation: 45 minutes Vital Signs/I&Os Vital Signs Date Time Temp Pulse Resp B/P (MAP) Pulse Ox O2 Delivery O2 Flow Rate FiO2 12/11/20 06:00 98.4 71 18 119/59 (79) 93 Room Air I&O- Last 24 Hours up to 6 AM 12/11/20 06:00 Intake Total 750 ml Output Total 0 ml Balance 750 ml Laboratory Data Labs 24H Laboratory Tests 2 12/11/20 05:48: Immature Granulocyte % (Auto) 0.4, Neutrophils (%) (Auto) 73.2H, Lymphocytes (%) (Auto) 14.6L, Monocytes (%) (Auto) 11.4H, Eosinophils (%) (Auto) 0.0, Basophils (%) (Auto) 0.4, Neutrophils # (Auto) 3.8, Lymphocytes # (Auto) 0.8L, Monocytes # (Auto) 0.6, Eosinophils # (Auto) 0.0, Basophils # (Auto) 0.0, Nucleated Red Blood Cells % (auto) 0.0, Anion Gap 8, Glomerular Filtration Rate > 60.0, Calcium Level 7.3L CBC/BMP Laboratory Tests 12/11/20 05:48 Microbiology Microbiology 12/09/20 Respiratory Virus Panel (PCR) ([facility]) - Final, Complete Respiratory Syncytial Virus 12/09/20 Blood Culture - Preliminary, Resulted No growth after 24 hours . All specim... 12/09/20 Blood Culture - Preliminary, Resulted No growth after 24 hours . All specim... Discharge Medications Scheduled Ascorbic Acid (Vitamin C) 500 Mg Capsule, 500 MG PO DAILY, (Reported) Aspirin (Aspirin EC) 81 Mg Tablet.dr, 81 MG PO QHS, (Reported) Atenolol (Atenolol) 25 Mg Tablet, 12.5 MG PO QHS, (Reported) Atorvastatin Calcium (Atorvastatin Calcium) 20 Mg Tablet, 20 MG PO QHS, (Reported) Calcium Carb/Vitamin D3/Vit K1 (Viactiv 650 mg-12.5 Mcg Chew) 1 Each Tab.chew, 1 EACH PO BID, (Reported) Calcium Carbonate (Calcium Carbonate) 200 Mg Tab.chew, 500 MG PO BIDWM Donepezil HCl (Aricept) 10 Mg Tablet, 10 MG PO QHS, (Reported) Doxycycline Hyclate (Doxycycline Hyclate) 100 Mg Tablet, 100 MG PO BID Duloxetine HCl (Duloxetine HCl) 30 Mg Capsule.dr, 30 MG PO QHS, (Reported) Esomeprazole Magnesium (Esomeprazole Magnesium) 40 Mg Capsule.dr, 40 MG PO DAILY, (Reported) Famotidine (Famotidine) 40 Mg Tablet, 40 MG PO QPM, (Reported) Fluticasone Propionate (Fluticasone Propionate) 15.8 Ml [place].susp, 2 SPRAY NARES DAILY, (Reported) Furosemide (Furosemide) 40 Mg Tablet, 40 MG PO DAILY, (Reported) Lactobacillus Acidophilus (Probiotic) 1 Each Capsule, 1 CAP PO DAILY, (Reported) Leuprolide Acetate (Lupron Depot) 45 Mg Syringekit, 45 MG IM zheng three months, (Reported) Magnesium (Magnesium) 200 Mg Tablet, 400 MG PO QPM, (Reported) Memantine HCl (Namenda) 10 Mg Tablet, 10 MG PO DAILY, (Reported) Montelukast Sodium (Montelukast Sodium) 10 Mg Tablet, 10 MG PO QHS, (Reported) Multivit-Min/FA/Lycopen/Lutein (Centrum Silver Tablet) 1 Each Tablet, 1 TAB PO DAILY, (Reported) Sennosides/Docusate Sodium (Senna-S Tablet) 1 Each Tablet, 1 TAB PO QAM, (Reported) Tamsulosin HCl (Flomax) 0.4 Mg Capsule, 0.4 MG PO QPM, (Reported) Ubidecarenone (Co Q-10) 100 Mg Capsule, 100 MG PO DAILY, (Reported) Zinc (Zinc) 50 Mg Tablet, 50 MG PO DAILY, (Reported) Scheduled PRN Hydrocodone/Acetaminophen (Hydrocodone-Acetamin 5-325 mg) 1 Each Tablet, 1 TAB PO Q4-6HP PRN for pain, (Reported) Morphine Sulfate (Morphine Sulfate ER) 15 Mg Tablet.er, 15 MG PO QHS PRN for pain, (Reported) Polyethylene Glycol 3350 (Miralax) 119 Gm Powder, 17 GM PO DAILY PRN for CONSTIPATION, (Reported) dilute in 8 ounces of water or juice Allergies Coded Allergies: lidocaine (Verified Allergy, Severe, anaphylaxsis, 12/09/20) YOMAIRA MARQUEZ DO Dec 11, 2020 15:45
[2020-12-11] MEDS ORDERED: CALCIUM CARBONATE 500 MG CHEW U/D PO SCH (18:00)
--- NOTE | 2020-12-11 20:13 | ECGEPIP ---
[facility] - ED Test Date: 2020-12-09 Pat Name: JIM CROSS Department: Room: [place] [address] Gender: Male [employer]crew Foreman: Jose Alberto NICOLAS : 1945 Requested By: TRIP SALTER Order Number: [id number] Reading MD: Deyanira Dahl Measurements Intervals [place] Rate: 77 P: 23 VA: 122 QRS: -11 QRSD: 88 T: 43 QT: 362 QTc: 409 Interpretive Statements Normal sinus rhythm Nonspecific ST abnormality No prior Electronically Signed on 12-11-2020 20:13:17 EDT by Deyanira Dahl
[2020-12-11] MEDS ORDERED: CEFDINIR 300 MG CAP (OMNICEF) PO SCH (21:00)
[2020-12-11] MEDS ORDERED: DOXYCYCLINE HYCLATE 100MG TABLET PO SCH (21:00)
== END 2020-12-11 16:25 | DRG 194 ==
LOC: M ED 21:07 → M ED INP 12-10 00:40 → M MSPAV 12-10 03:20
PROVIDERS: ADMIT General Practice; ATTEND Internal Medicine
DX: J12.1 Respiratory syncytial virus pneumonia (principal); C79.51 Secondary malignant neoplasm of bone; F41.9 Anxiety disorder, unspecified; F32.9 Major depressive disorder, single episode, unspecified; F03.90 Unspecified dementia, unspecified severity, without behavioral disturbance, psychotic disturbance, mood disturbance, and anxiety; K21.9 Gastro-esophageal reflux disease without esophagitis; I10 Essential (primary) hypertension; J45.909 Unspecified asthma, uncomplicated; C61 Malignant neoplasm of prostate; Z92.21 Personal history of antineoplastic chemotherapy; I25.10 Atherosclerotic heart disease of native coronary artery without angina pectoris; Z95.2 Presence of prosthetic heart valve; E11.9 Type 2 diabetes mellitus without complications; Z79.899 Other long term (current) drug therapy; Z79.82 Long term (current) use of aspirin; Z88.8 Allergy status to other drugs, medicaments and biological substances; Z98.41 Cataract extraction status, right eye; Z98.42 Cataract extraction status, left eye

== ENCOUNTER 2020-12-11 14:43 | Inpatient (IN) | payer MEDICARE ==
[~2020-12-11] VITALS: Ht 172.7 cm; Wt 77.0 kg
[~2020-12-11 14:43] MED LIST changes: +ARIC1TAB2 PO; +ASPI81TA26 PO; +ATEN25TA PO; +ATOR1TAB21 PO; +CEFD300CAP PO; +CENT1TAB PO; +CO Q100C2 PO; +DOXY100T PO; +DULO1CAP4 PO; +DULO30CA47 PO; +ESOM1CAP5 PO; +FAMO40TA3 PO; +FLOM0.4C39 PO; +FLUT15.820 NARES; +FURO40TA2 PO; -GASTROGRAFIN SOLUTION 30ML (Q9963) As Ordered ONE; +HYDR-3713 PO; -ISOVUE-370 76% 100ML VIAL As Ordered ONE; +LUPR45IN IM; +MAGN200T PO; +MIRA3350 PO; +MONT10TA10 PO; +MORP-69 PO; +NAME10TA PO; +PROBCAP14 PO; +SENN-23 PO; +VIAC1CHW PO; +VITA500C24 PO; +XGEVINJ SC; +ZINC1TAB2 PO
[2020-12-11] MEDS ORDERED: HOME MED LIST COMPLETE! XX SCH (15:10)
[2020-12-11] MEDS ORDERED: MIRALAX *UNIT DOSE* 17GM PACKET PO PRN (15:35)
[2020-12-11] MEDS ORDERED: MORPHINE 15 MG SA TAB PO PRN (15:35)
[2020-12-11] MEDS ORDERED: NORCO, ANEXSIA 5/325MG TABLET (HYDROcodone/ACETAMINOPHEN) PO PRN (15:35)
[2020-12-11] MEDS ORDERED: BISACODYL 10 MG SUPP PR PRN (15:35)
[2020-12-11] MEDS ORDERED: CALC200T15 PO (15:37)
--- NOTE | 2020-12-11 15:46 | HPEPDOC ---
Evaluation Advisor Note DATE OF ADMISSION: 12-11-20 DATE OF SERVICE: 12-12-20 TIME OF ADMISSION: Please refer to physician's admission order. SOURCE OF ADMISSION INFORMATION: [facility] record and patient CHIEF COMPLAINT: weakness in setting on Pneumonia HISTORY OF PRESENT ILLNESS: 75M pmh stage 4 prostate cancer s/p chemo therapy, asthma, CAD s/p stent, DM, and dementia with repeated falls in the last 6 months, presented to [facility] ED on 12-10-20 complaining of weakness with fevers and cough. CXR revealed, Mild peripheral lingular and middle lobe opacities Diffuse sclerotic bones, correlate for diffuse skeletal metastases and respiratory panel confirmed RSV. He was started on IV antibiotics for Community acquired PNA and once his p rocalcitonin was found to be low, switched to oral antibiotics. He had a drop in his Hgb/Hct, intermittently elevated blood pressures, and new weakness in mobility and ADLs, deemed medically appropriate for discharge to ARU on 12-11-20. REVIEW OF SYSTEMS: The following is a completed review of systems and has been reviewed. Review of systems otherwise unremarkable. PAIN: Patient self reports right hip and left knee pain EYES: No recent vision changes EARS, NOSE, & THROAT: No throat pain, or dysphagia, or rhinorrhea CARDIOVASCULAR: Denies chest pain or palpitations PULMONARY: Denies shortness of breath GASTROINTESTINAL: Denies constipation/diarrhea GENITOURINARY: +urinary incontinence (chronic) MUSCULOSKELETAL: generalized weakness NEUROLOGICAL:+ paresthesias HEMATOLOGICAL: denies easy bruising SKIN: denies rash PSYCHIATRIC:+ confused All other review of systems found to be negative. PAST MEDICAL HISTORY: as per HPI PAST SURGICAL HISTORY: Bilat cataract removal, cardiac stent, prostate biopsy ALLERGIES: Please see below. MEDICATIONS: Please see below. SOCIAL HISTORY: No etoh/illicit drugs/smoking DIET: low sodium PHYSICAL EXAMINATION: VITAL SIGNS: Please see below. GENERAL: Pleasant and cooperative. No acute distress. HEENT: PERRL. Extraocular movements intact. Clear conjunctiva CARDIOVASCULAR: Regular rate and rhythm. No murmurs, rubs, or gallops LUNGS: clear to auscultation bilaterally. No wheezes. No rhonchi ABDOMEN: Soft, nontender, nondistended. Positive bowel sounds. Normal active bowel sounds NEUROLOGICAL: Alert and oriented to self, and , not place or time Cranial nerves II through XII grossly intact. Sensation decreased to light touch stocking pattern EXTREMITIES: 5\\5 strength bilateral upper extremities. 5\\5 strength right lower extremity. 5/5 strength in left lower extremity. +bilat LE edema LABORATORY DATA: Please see below. IMAGING: Imaging documentation personally reviewed by record FUNCTIONAL STATUS: Premorbid: Modified- Independent with all activities of daily life as well as mobility On Admission: Contact guard-Mod assist for bed mobility, functional transfers, ambulation, dressing, toileting GOALS: Modified Independent for bed mobility, functional transfers, ambulation, dressing, toileting, stairs ASSESSMENT:75-year-old M with past medical history of stage 4 prostate cancer who presents status post recurrent falls and weakness in setting on pneumonia PLAN: 1. Rehab- PT/OT advance mobility and ADLS, fall recovery, balance training, strengthen/stretch/maintain ROM all 4 limbs 2. Neuro- hx of dementia contributing to overall functional debility, c/u namenda and donepezil 3. CArdiac- hx of HTN c/u BP meds -CAD s/p cardiac stent, c/u ASA -HLD- c/u statin -CHF? patient on lasix, given edema on exam, will fluis restrict, will monitor daily weights -medicine consulted to assist in overall management 4. Resp- c/u doxycycline for RSV PNA with suspected superimposed bacterial infection, guaifenesin, combivent, monitor for decline -hx of asthma c/u singulair 5. Onc- stage 4 prostate cancer s/p chemo, c/u hormonal therapy -recent CXR showing possible bony metastases, patient to follow-up with oncologist -recent abdomen ct/pelvis showing, "There is diffuse widespread skeletal blastic metastasis." given patient's recurrent falls and reported right hip pain, will order hip X-rays to r/o fracture 6. Pain- c/u norco and morphine 7. Psych- c/u cymbalta 8. - hx of prostate cancer c/u flomax, monitor PVRs 9. Dispo- TBD POST ADMISSION PHYSICIAN EVALUATION: Medical and functional status: Description of medical status, medical assessment: As above. Rehabilitation diagnosis and current and prior cold morbid medical conditions as above. Risk of complications and plans to mitigate them as above. Description of functional status current status is as above. Prior status as above. Status compared to preadmission: There are no clinically significant differences between the patient's current status and the information described on the preadmission screening document. Treatment plan anticipated: Treatment plan is as described above. Required disci plines including physical therapy, occupational therapy, others as noted above. Intensity of services: 3 hours a day, 6 days a week. Special considerations: There are no specific special or safety considerations that would likely preclude immediate implementation of an intensive rehabilitation program or subsequently influence the plan of care. ATTESTATION: Considering all the information above, it is my best judgment that this patient requires intensive rehabilitation therapy as described above and an inpatient hospital environment due to the complexity of nursing, medical, and re habilitation needs required by the patient. Furthermore, this patient can reasonably be expected to participate in an benefit from an inpatient rehabilitation stay with an interdisciplinary team approach to the delivery of rehabilitation care under the direction and supervision of rehabilitation physician. PROGNOSIS: good ESTIMATED LENGTH OF STAY:8-12 days. PROJECTED DISCHARGE DESTINATION: Home with family support and any durable medical equipment required to increase functional safety and mobility. TIME SPENT COUNSELING AND COORDINATING INITIAL CARE: Greater than 70 minutes. Vital Signs Vital Signs Date Time Temp Pulse Resp B/P (MAP) Pulse Ox O2 Delivery O2 Flow Rate FiO2 12/11/20 16:35 97.6 80 18 149/71 (97) 98 Room Air Home Medications Scheduled Ascorbic Acid (Vitamin C) 500 Mg Capsule, 500 MG PO DAILY, (Reported) Aspirin (Aspirin EC) 81 Mg Tablet.dr, 81 MG PO QHS, (Reported) Atenolol (Atenolol) 25 Mg Tablet, 12.5 MG PO QHS, (Reported) Atorvastatin Calcium (Atorvastatin Calcium) 20 Mg Tablet, 20 MG PO QHS, (Reported) Calcium Carb/Vitamin D3/Vit K1 (Viactiv 650 mg-12.5 Mcg Chew) 1 Each Tab.chew, 1 EACH PO BID, (Reported) Calcium Carbonate (Calcium Carbonate) 200 Mg Tab.chew, 500 MG PO BIDWM Donepezil HCl (Aricept) 10 Mg Tablet, 10 MG PO QHS, (Reported) Doxycycline Hyclate (Doxycycline Hyclate) 100 Mg Tablet, 100 MG PO BID Duloxetine HCl (Duloxetine HCl) 30 Mg Capsule.dr, 30 MG PO QHS, (Reported) Esomeprazole Magnesium (Esomeprazole Magnesium) 40 Mg Capsule.dr, 40 MG PO DAILY, (Reported) Famotidine (Famotidine) 40 Mg Tablet, 40 MG PO QPM, (Reported) Fluticasone Propionate (Fluticasone Propionate) 15.8 Ml [place].susp, 2 SPRAY NARES DAILY, (Reported) Furosemide (Furosemide) 40 Mg Tablet, 40 MG PO DAILY, (Reported) Lactobacillus Acidophilus (Probiotic) 1 Each Capsule, 1 CAP PO DAILY, (Reported) Leuprolide Acetate (Lupron Depot) 45 Mg Syringekit, 45 MG IM zheng three months, (Reported) Magnesium (Magnesium) 200 Mg Tablet, 400 MG PO QPM, (Reported) Memantine HCl (Namenda) 10 Mg Tablet, 10 MG PO DAILY, (Reported) Montelukast Sodium (Montelukast Sodium) 10 Mg Tablet, 10 MG PO QHS, (Reported) Multivit-Min/FA/Lycopen/Lutein (Centrum Silver Tablet) 1 Each Tablet, 1 TAB PO DAILY, (Reported) Sennosides/Docusate Sodium (Senna-S Tablet) 1 Each Tablet, 1 TAB PO QAM, (Reported) Tamsulosin HCl (Flomax) 0.4 Mg Capsule, 0.4 MG PO QPM, (Reported) Ubidecarenone (Co Q-10) 100 Mg Capsule, 100 MG PO DAILY, (Reported) Zinc (Zinc) 50 Mg Tablet, 50 MG PO DAILY, (Reported) Scheduled PRN Hydrocodone/Acetaminophen (Hydrocodone-Acetamin 5-325 mg) 1 Each Tablet, 1 TAB PO Q4-6HP PRN for pain, (Reported) Morphine Sulfate (Morphine Sulfate ER) 15 Mg Tablet.er, 15 MG PO QHS PRN for pain, (Reported) Polyethylene Glycol 3350 (Miralax) 119 Gm Powder, 17 GM PO DAILY PRN for CONSTIPATION, (Reported) dilute in 8 ounces of water or juice Allergies Coded Allergies: lidocaine (Verified Allergy, Severe, anaphylaxsis, 12/09/20) A-FIB/CHADSVASC A-FIB History Current/History of A-Fib/PAF?: No Current PO Anticoag Therapy: No NESTOR KING MD Dec 11, 2020 15:46
[2020-12-11] MEDS: REMEDY PHYTOPLEX Z-GUARD PASTE 113GM TUBE (FROM STOREROOM PRODUCT) TOP SCH ×2 (16:00→20:52)
[2020-12-11 16:35] VITALS: BP 149/71
[2020-12-11] MEDS: guaiFENesin 200 MG TAB PO SCH ×2 (18:14→20:50)
[2020-12-11] MEDS: LACTOBACILLUS ACIDOPHILUS CAP (BACID) PO SCH ×2 (18:14→20:51)
[2020-12-11] MEDS: COMBIVENT RESPIMAT 100-20MCG INHALER 4GM INH SCH (19:39)
[2020-12-11 20:00] VITALS: BP 127/64
[2020-12-11] MEDS: ASPIRIN 81MG ENTERIC TABLET PO SCH (20:50)
[2020-12-11] MEDS: SENNA 8.6 MG TAB (SENOKOT) PO SCH (20:50)
[2020-12-11] MEDS: DOXYCYCLINE HYCLATE 100MG TABLET PO SCH (20:50)
[2020-12-11] MEDS: ATORVASTATIN 20 MG TAB PO SCH (20:51)
[2020-12-11] MEDS: DOCUSATE SODIUM 100MG CAPSULE PO SCH (20:51)
[2020-12-11] MEDS: TAMSULOSIN 0.4 MG CAP PO SCH (20:51)
[2020-12-11] MEDS: FAMOTIDINE 20 MG TAB PO SCH (20:51)
[2020-12-11] MEDS: DONEPEZIL 5 MG TAB PO SCH (20:51)
[2020-12-11] MEDS: ACETAMINOPHEN TAB 650MG DOSE (2X325MG) PO PRN (20:51)
[2020-12-11] MEDS: MONTELUKAST 10 MG TAB PO SCH (20:51)
[2020-12-11] MEDS: DULoxetine 30 MG CAP (CYMBALTA) PO SCH (20:51)
[2020-12-11] MEDS: ATENOLOL 12.5MG PER 1/2 TABLET PO SCH (20:52)
[2020-12-11] MEDS: FLUTICASONE PROP 0.05% NASAL SPRAY 16 GM (FLONASE) NARES SCH (20:52)
[2020-12-12 06:00] VITALS: BP 159/80
[2020-12-12 07:04] LABS: BASO % 0.6 % (0.0-1.0); EOS # 0.1 10^3/uL (0.0-0.5); EOS % 1.9 % (0.0-3.0); HEMATOCRIT 31.5 % (42.0-52.0); HEMOGLOBIN 10.7 g/dl (13.5-17.5); MEAN CORPUSCULAR HEMOGLOBIN 30.6 pg (27.0-33.0); MONO # 0.5 10^3/uL (0.0-0.8); MONO % 10.3 % (2.0-8.0); NEUTROPHILS # 3.2 10^3/uL (1.5-8.5); NEUTROPHILS % 66.8 % (36.0-66.0); PLATELET COUNT, AUTOMATED 174 10^3/uL (150-450); WHITE BLOOD COUNT 4.7 10^3/uL (4.0-10.0)
[2020-12-12] MEDS: COMBIVENT RESPIMAT 100-20MCG INHALER 4GM INH SCH ×3 (07:33→20:30)
[2020-12-12 07:39] LABS: ALT/SGPT 66 U/L (12-78); BILIRUBIN,TOTAL 0.4 MG/DL (0.2-1.0); BLOOD UREA NITROGEN 15 MG/DL (7-18); CALCIUM LEVEL 8.3 MG/DL (8.8-10.2); CARBON DIOXIDE LEVEL 26 MEQ/L (21-32); CHLORIDE LEVEL 106 MEQ/L (98-107); CREATININE FOR GFR 0.81 MG/DL (0.70-1.30); GLOMERULAR FILTRATION RATE > 60.0 (>42); GLUCOSE, FASTING 135 MG/DL (70-100); POTASSIUM SERUM 3.9 MEQ/L (3.5-5.1); SODIUM LEVEL 139 MEQ/L (136-145); TOTAL PROTEIN 6.3 GM/DL (6.4-8.2)
[2020-12-12] MEDS: MEMANTINE 5MG TABLET (NAMENDA) PO SCH (08:47)
[2020-12-12] MEDS: guaiFENesin 200 MG TAB PO SCH ×3 (08:47→20:50)
[2020-12-12] MEDS: LACTOBACILLUS ACIDOPHILUS CAP (BACID) PO SCH ×3 (08:48→20:54)
[2020-12-12] MEDS: ASCORBIC ACID 500 MG TAB PO SCH (08:48)
[2020-12-12] MEDS: DOXYCYCLINE HYCLATE 100MG TABLET PO SCH ×2 (08:48→20:50)
[2020-12-12] MEDS: FUROSEMIDE 40 MG TAB PO SCH (08:48)
[2020-12-12] MEDS: DOCUSATE SODIUM 100MG CAPSULE PO SCH ×2 (08:50→20:50)
[2020-12-12] MEDS: ENOXAPARIN 40MG/0.4ML SYRINGE (J1650 PER 10MG) SC SCH (08:50)
[2020-12-12] MEDS: FLUTICASONE PROP 0.05% NASAL SPRAY 16 GM (FLONASE) NARES SCH ×2 (08:57→20:51)
[2020-12-12] MEDS: REMEDY PHYTOPLEX Z-GUARD PASTE 113GM TUBE (FROM STOREROOM PRODUCT) TOP SCH ×3 (08:58→20:52)
[2020-12-12 14:00] VITALS: BP 121/66
--- NOTE | 2020-12-12 15:37 | REP ---
INDICATION: r/o fracture hx of falls with bony mets. TECHNIQUE: AP and frog-lateral views FINDINGS: Diffuse multifocal blastic lesions are seen throughout the imaged osseous structures. This is consistent with the patient's known widespread skeletal metastatic disease. There is no evidence of an acute fracture, dislocation, or subluxation. IMPRESSION: Bony metastasis without plain radiographic evidence of an acute fracture. <Electronically signed by Jermaine Salas > 12/12/20 1539
--- NOTE | 2020-12-12 19:02 | IPNPDOC ---
Subjective Date Seen The patient was seen on 12/12/20. Subjective Chief Complaint/HPI Mr. Puckett is a 75 year old male with stage IV prostate CA s/p chemo on hormonal therapy, asthma, and DM who was initially admitted for viral pneumonia and then sent to ARU for rehab. Today he is feeling well. Denies chest pain, dyspnea, or abdominal pain complaints. He has no further questions or concerns. Objective Physical Examination General Exam: Positive: Alert, Cooperative Eye Exam: Negative: Sclera icteric ENT Exam: Positive: Atraumatic Neck Exam: Positive: Supple Chest Exam: Positive: Clear to auscultation; Negative: Rales, Rhonchi, Wheezing Heart Exam: Positive: Rate Normal, Regular Rhythm Abdomen Exam: Positive: Normal bowel sounds, Soft; Negative: Tenderness Extremity Exam: Negative: Edema Neuro Exam: Positive: Normal Speech Psych Exam: Positive: Mental status NL, Mood NL Assessment /Plan Assessment Mr. Puckett is a 75 year old male with stage IV prostate CA s/p chemo on hormonal therapy, asthma, and DM who was initially admitted for viral pneumonia and then sent to ARU for rehab. He is doing well at room air. No fever or leukocytosis. Procalcitonin was negative. On doxycycline for atypicals Plan/VTE VTE Prophylaxis Ordered?: Yes Plan 1. Debility -Being managed in the ARU 2. RSV pneumoniaPneumonia -No leukocytosis or hypoxia, but has fever and CXR opacity -Procalcitonin negative. Most likely viral pneumonia -Doxycycline day 3 (for atypicals. Total course of 5 days planned) 3. Asthma -Stable -Continue Flonase and montelukast -PRN duonebs 4. Hypertension -Continue atenolol and furosemide 5. GERD -Continue famotidine and omeprazole 6. Dementia -Continue donepezil and memantine 7. Depression/anxiety -Continue Cymbalta 8. Metastatic prostate CA -Continue norco and morphine for pain control -Continue tamsulosin -Patient to receiving hormonal therapy every 3 months as outpatient 9. DVT ppx -Lovenox Disposition: Per ARU VS, I&O, 24H, Fishbone Vital Signs/I&O Vital Signs Date Time Temp Pulse Resp B/P (MAP) Pulse Ox O2 Delivery O2 Flow Rate FiO2 12/12/20 14:00 98.1 67 17 121/66 (84) 99 Room Air I&O- Last 24 Hours up to 6 AM 12/12/20 06:00 Intake Total 120 ml Output Total 100 ml Balance 20 ml Laboratory Data 24H LABS Laboratory Tests 2 12/12/20 06:51: Immature Granulocyte % (Auto) 0.4, Neutrophils (%) (Auto) 66.8H, Lymphocytes (%) (Auto) 20.0L, Monocytes (%) (Auto) 10.3H, Eosinophils (%) (Auto) 1.9, Basophils (%) (Auto) 0.6, Neutrophils # (Auto) 3.2, Lymphocytes # (Auto) 1.0L, Monocytes # (Auto) 0.5, Eosinophils # (Auto) 0.1, Basophils # (Auto) 0.0, Nucleated Red Blood Cells % (auto) 0.0, Anion Gap 7L, Glomerular Filtration Rate > 60.0, Calcium Level 8.3L, Total Bilirubin 0.4, Aspartate Amino Transf (AST/SGOT) 48H, Alanine Aminotransferase (ALT/SGPT) 66, Alkaline Phosphatase 100, Total Protein 6.3L, Albumin 3.0L, Albumin/Globulin Ratio 0.9 CBC/BMP Laboratory Tests 12/12/20 06:51 YOMAIRA MARQUEZ DO Dec 12, 2020 19:02
[2020-12-12 20:00] VITALS: BP 150/76
[2020-12-12] MEDS: SENNA 8.6 MG TAB (SENOKOT) PO SCH (20:50)
[2020-12-12] MEDS: ASPIRIN 81MG ENTERIC TABLET PO SCH (20:50)
[2020-12-12] MEDS: MONTELUKAST 10 MG TAB PO SCH (20:50)
[2020-12-12] MEDS: TAMSULOSIN 0.4 MG CAP PO SCH (20:50)
[2020-12-12] MEDS: DONEPEZIL 5 MG TAB PO SCH (20:50)
[2020-12-12] MEDS: DULoxetine 30 MG CAP (CYMBALTA) PO SCH (20:50)
[2020-12-12] MEDS: FAMOTIDINE 20 MG TAB PO SCH (20:51)
[2020-12-12] MEDS: ATORVASTATIN 20 MG TAB PO SCH (20:51)
[2020-12-12] MEDS: ATENOLOL 12.5MG PER 1/2 TABLET PO SCH (20:51)
[2020-12-12] MEDS: traZODone 25MG PER 1/2 TABLET PO SCH (20:54)
[2020-12-13 06:00] VITALS: BP 144/72
[2020-12-13 06:28] LABS: BASO % 0.9 % (0.0-1.0); EOS # 0.1 10^3/uL (0.0-0.5); EOS % 2.6 % (0.0-3.0); HEMATOCRIT 30.5 % (42.0-52.0); HEMOGLOBIN 10.4 g/dl (13.5-17.5); LYMPH % 27.6 % (24.0-44.0); MEAN CORPUSCULAR HEMOGLOBIN 30.1 pg (27.0-33.0); MEAN CORPUSCULAR HGB CONC 34.1 g/dl (32.0-36.5); MEAN CORPUSCULAR VOLUME 88.4 fl (80.0-96.0); MONO # 0.5 10^3/uL (0.0-0.8); MONO % 13.6 % (2.0-8.0); NEUTROPHILS # 1.9 10^3/uL (1.5-8.5); PLATELET COUNT, AUTOMATED 182 10^3/uL (150-450); RED BLOOD COUNT 3.45 10^6/uL (4.30-6.10); WHITE BLOOD COUNT 3.5 10^3/uL (4.0-10.0)
[2020-12-13 06:55] LABS: BLOOD UREA NITROGEN 14 MG/DL (7-18); CALCIUM LEVEL 8.3 MG/DL (8.8-10.2); CARBON DIOXIDE LEVEL 26 MEQ/L (21-32); CHLORIDE LEVEL 109 MEQ/L (98-107); CREATININE FOR GFR 0.72 MG/DL (0.70-1.30); GLOMERULAR FILTRATION RATE > 60.0 (>42); GLUCOSE, FASTING 138 MG/DL (70-100); POTASSIUM SERUM 3.8 MEQ/L (3.5-5.1); SODIUM LEVEL 141 MEQ/L (136-145)
[2020-12-13] MEDS: COMBIVENT RESPIMAT 100-20MCG INHALER 4GM INH SCH ×3 (08:06→20:13)
[2020-12-13] MEDS: LACTOBACILLUS ACIDOPHILUS CAP (BACID) PO SCH ×3 (08:33→20:41)
[2020-12-13] MEDS: MEMANTINE 5MG TABLET (NAMENDA) PO SCH (08:34)
[2020-12-13] MEDS: ASCORBIC ACID 500 MG TAB PO SCH (08:34)
[2020-12-13] MEDS: FLUTICASONE PROP 0.05% NASAL SPRAY 16 GM (FLONASE) NARES SCH ×2 (08:34→20:43)
[2020-12-13] MEDS: FUROSEMIDE 40 MG TAB PO SCH (08:34)
[2020-12-13] MEDS: guaiFENesin 200 MG TAB PO SCH ×3 (08:34→20:41)
[2020-12-13] MEDS: ENOXAPARIN 40MG/0.4ML SYRINGE (J1650 PER 10MG) SC SCH (08:34)
[2020-12-13] MEDS: DOXYCYCLINE HYCLATE 100MG TABLET PO SCH ×2 (08:34→20:41)
[2020-12-13] MEDS: DOCUSATE SODIUM 100MG CAPSULE PO SCH ×2 (08:35→20:41)
[2020-12-13] MEDS: REMEDY PHYTOPLEX Z-GUARD PASTE 113GM TUBE (FROM STOREROOM PRODUCT) TOP SCH ×3 (08:35→20:43)
--- NOTE | 2020-12-13 12:37 | IPNPDOC ---
PM&R Progress Note DATE OF SERVICE: Dec 13, 2020 Plater Apprentice Progress Note Subjective: Patient seen with his in the room. He was unable to state whether he slept well the night before, but according to his he slept very well. He reports left knee pain. REVIEW OF SYSTEMS: The following is a completed review of systems and has been reviewed. Review of systems otherwise unremarkable. PAIN: Patient self reports right hip and left knee pain EYES: No recent vision changes EARS, NOSE, & THROAT: No throat pain, or dysphagia, or rhinorrhea CARDIOVASCULAR: Denies chest pain or palpitations PULMONARY: Denies shortness of breath GASTROINTESTINAL: Denies constipation/diarrhea GENITOURINARY: +urinary incontinence (chronic) MUSCULOSKELETAL: generalized weakness NEUROLOGICAL:+ paresthesias HEMATOLOGICAL: denies easy bruising SKIN: denies rash PSYCHIATRIC:+ confused All other review of systems found to be negative. PHYSICAL EXAMINATION: VITAL SIGNS: Please see below. GENERAL: Pleasant and cooperative. No acute distress. HEENT: PERRL. Extraocular movements intact. Clear conjunctiva CARDIOVASCULAR: Regular rate and rhythm. No murmurs, rubs, or gallops LUNGS: clear to auscultation bilaterally. No wheezes. No rhonchi ABDOMEN: Soft, nontender, nondistended. Positive bowel sounds. Normal active bowel sounds NEUROLOGICAL: Alert and oriented to self, and , not place or time Cranial nerves II through XII grossly intact. Sensation decreased to light touch stocking pattern EXTREMITIES: 5\\5 strength bilateral upper extremities. 5\\5 strength right lower extremity. 5/5 strength in left lower extremity. left knee with small effusion +bilat LE edema (improving) ASSESSMENT:75-year-old M with past medical history of stage 4 prostate cancer who presents status post recurrent falls and weakness in setting on pneumonia PLAN: 1. Rehab- PT/OT advance mobility and ADLS, fall recovery, balance training, str engthen/stretch/maintain ROM all 4 limbs 2. Neuro- hx of dementia contributing to overall functional debility, c/u namenda and donepezil -neuro- patient with peripheral polyneuropathy on exam possibly due to hx of diabetes contributing to overall decreased function and increased falls 3. CArdiac- hx of HTN c/u BP meds -CAD s/p cardiac stent, c/u ASA -HLD- c/u statin -CHF? patient on lasix, given edema on exam, will fluis restrict, will monitor daily weights -medicine consulted to assist in overall management 4. Resp- c/u doxycycline for RSV PNA with suspected superimposed bacterial infection, guaifenesin, combivent, monitor for decline -hx of asthma c/u singulair 5. Onc- stage 4 prostate cancer s/p chemo, c/u hormonal therapy -recent CXR showing possible bony metastases, patient to follow-up with oncologist -recent abdomen ct/pelvis showing, "There is diffuse widespread skeletal blastic metastasis." given patient's recurrent falls and reported right hip pain ordered hip X-rays to r/o fracture- no fracture, +bony mets 6. Pain- c/u norco and morphine, will add flector patch to left knee 7. Psych- c/u cymbalta -trazodone qhs 8. - hx of prostate cancer c/u flomax, monitor PVRs 9. Endo- hx of DM diet controlled 10. Dispo- TBD Allergies Coded Allergies: lidocaine (Verified Allergy, Severe, anaphylaxsis, 12/09/20) Vital Signs Vital Signs Date Time Temp Pulse Resp B/P (MAP) Pulse Ox O2 Delivery O2 Flow Rate FiO2 12/13/20 06:00 97.8 90 18 144/72 (96) 99 Room Air Laboratory Data CBC/BMP Laboratory Tests 12/13/20 06:13 Labs 24H Laboratory Tests 2 12/13/20 06:13: Immature Granulocyte % (Auto) 0.3, Neutrophils (%) (Auto) 55.0, Lymphocytes (%) (Auto) 27.6, Monocytes (%) (Auto) 13.6H, Eosinophils (%) (Auto) 2.6, Basophils (%) (Auto) 0.9, Neutrophils # (Auto) 1.9, Lymphocytes # (Auto) 1.0L, Monocytes # (Auto) 0.5, Eosinophils # (Auto) 0.1, Basophils # (Auto) 0.0, Nucleated Red Blood Cells % (auto) 0.0, Anion Gap 6L, Glomerular Filtration Rate > 60.0, Calcium Level 8.3L Current Medications Current Medications Current Medications Medications (Trade) Dose Ordered Sig/Sancho Route PRN Reason Start Time Stop Time Status Last Admin Dose Admin Acetaminophen (Tylenol Tab) 650 mg Q12HP PRN PO fever 12/11/20 15:35 7/26/21 20:51 Acetaminophen/ Hydrocodone Bitart ([place], Anexsia 5/325) 1 tab Q4HP PRN PO MODERATE PAIN (PS 5-7) 12/11/20 15:35 Albuterol/ Ipratropium (Combivent Respimat 100-20mcg) 1 puff RTID INH 12/11/20 20:00 12/13/20 08:06 Ascorbic Acid (Vitamin C) 500 mg DAILY PO 12/12/20 09:00 12/13/20 08:34 Aspirin (Ecotrin) 81 mg QHS PO 12/11/20 21:00 12/12/20 20:50 Atenolol (Tenormin) 12.5 mg QHS PO 12/11/20 21:00 12/12/20 20:51 Atorvastatin Calcium (Lipitor) 20 mg QHS PO 12/11/20 21:00 12/12/20 20:51 Bisacodyl (Dulcolax Suppository) 10 mg DAILYPRN PRN OR CONSTIPATION 12/11/20 15:35 Docusate Sodium (Colace) 100 mg BID PO 12/11/20 21:00 12/12/20 20:50 Donepezil HCl (AriCEPT) 10 mg QHS PO 12/11/20 21:00 12/12/20 20:50 Doxycycline Hyclate (Vibramycin) 100 mg BID PO 12/11/20 21:00 12/15/20 09:01 12/13/20 08:34 Duloxetine HCl (Cymbalta) 30 mg QHS PO 12/11/20 21:00 12/12/20 20:50 Enoxaparin Sodium (Lovenox) 40 mg DAILY SC 12/12/20 09:00 12/13/20 08:34 Famotidine (Pepcid) 40 mg QHS PO 12/11/20 21:00 12/12/20 20:51 Fluticasone Propionate (Flonase 0.05% Nasal [place]) 1 spray BID NARES 12/11/20 21:00 12/13/20 08:34 Furosemide (Lasix) 40 mg DAILY PO 12/12/20 09:00 12/13/20 08:34 Guaifenesin (Robitussin Tab) 400 mg TID PO 12/11/20 16:00 12/13/20 08:34 Home Med (Med Rec Complete!) ASDIRECTED XX 12/11/20 15:10 12/11/20 16:47 DC Lactobacillus Acidophilus (Bacid) 1 ea TID PO 12/11/20 16:00 12/13/20 08:33 Memantine (Namenda) 10 mg QAM PO 12/12/20 09:00 12/13/20 08:34 Montelukast Sodium (Singulair) 10 mg QHS PO 12/11/20 21:00 12/12/20 20:50 Morphine Sulfate (Ms Contin) 15 mg QHS PRN PO pain >8/10 12/11/20 15:35 Polyethylene Glycol (Miralax) 1 pkt DAILY PRN PO CONSTIPATION 12/11/20 15:35 Senna (Senokot) 1 tab QHS PO 12/11/20 21:00 12/12/20 20:50 Tamsulosin HCl (Flomax) 0.4 mg QHS PO 12/11/20 21:00 12/12/20 20:50 Trazodone HCl (Desyrel) 25 mg QHS PO 12/12/20 21:00 12/12/20 20:54 NESTOR KING MD Dec 13, 2020 12:37
[2020-12-13 14:00] VITALS: BP 156/72
--- NOTE | 2020-12-13 15:56 | IPNPDOC ---
Text Note Date of Service The patient was seen on 12/13/20. NOTE Mr. Puckett is a 75 year old male with stage IV prostate CA s/p chemo on hormonal therapy, asthma, and DM who was initially admitted for viral pneumonia and then sent to ARU for rehab. Today he is feeling well. He has no further questions or concerns. Exam e Eye Negative: Sclera icteric ENT Exam: Positive: Atraumatic Neck Exam: Positive: Supple Chest Exam: Positive: Clear to auscultation; Negative: Rales, Rhonchi, Wheezing Heart Exam: Positive: Rate Normal, Regular Rhythm Abdomen Exam: Positive: Normal bowel sounds, Soft; Negative: Tenderness Extremity Exam: Negative: Edema Neuro Exam: Positive: Normal Speech Psych Exam: Positive: Mental status NL, Mood NL Assessment /Plan Mr. Puckett is a 75 year old male with stage IV prostate CA s/p chemo on hormonal therapy, asthma, and DM who was initially admitted for viral pneumonia and then sent to ARU for rehab. He is doing well at room air. No fever or leukocytosis. Procalcitonin was negative. On doxycycline for atypicals Plan 1. Debility -Being managed in the ARU 2. RSV pneumoniaPneumonia -No leukocytosis or hypoxia, but has fever and CXR opacity -Procalcitonin negative. Most likely viral pneumonia -Doxycycline day 3 (for atypicals. Total course of 5 days planned) 3. Asthma -Stable -Continue Flonase and montelukast -PRN duonebs 4. Hypertension -Continue atenolol and furosemide 5. GERD -Continue famotidine and omeprazole 6. Dementia -Continue donepezil and memantine 7. Depression/anxiety -Continue Cymbalta 8. Metastatic prostate CA -Continue norco and morphine for pain control -Continue tamsulosin -Patient to receiving hormonal therapy every 3 months as outpatient 9. DVT ppx -Lovenox Disposition: Per ARU Rosey ROCHA, I+O VSRosey, I+O Laboratory Tests 12/13/20 06:13 Vital Signs Date Time Temp Pulse Resp B/P (MAP) Pulse Ox O2 Delivery O2 Flow Rate FiO2 12/13/20 14:00 98.6 75 20 156/72 (100) 99 Room Air I&O- Last 24 Hours up to 6 AM 7/28/21 06:00 Intake Total 940 ml Balance 940 ml SHARLENE ORTEGA MD Dec 13, 2020 15:56
[2020-12-13 20:00] VITALS: BP 149/75
[2020-12-13] MEDS: traZODone 25MG PER 1/2 TABLET PO SCH (20:41)
[2020-12-13] MEDS: DONEPEZIL 5 MG TAB PO SCH (20:41)
[2020-12-13] MEDS: ATORVASTATIN 20 MG TAB PO SCH (20:42)
[2020-12-13] MEDS: SENNA 8.6 MG TAB (SENOKOT) PO SCH (20:42)
[2020-12-13] MEDS: FAMOTIDINE 20 MG TAB PO SCH (20:42)
[2020-12-13] MEDS: TAMSULOSIN 0.4 MG CAP PO SCH (20:42)
[2020-12-13] MEDS: DULoxetine 30 MG CAP (CYMBALTA) PO SCH (20:42)
[2020-12-13] MEDS: MONTELUKAST 10 MG TAB PO SCH (20:42)
[2020-12-13] MEDS: ASPIRIN 81MG ENTERIC TABLET PO SCH (20:42)
[2020-12-13] MEDS: ATENOLOL 12.5MG PER 1/2 TABLET PO SCH (21:44)
[2020-12-13] MEDS: DICLOFENAC EPOLAMINE 1.3 % PATCH TOP SCH (21:47)
[2020-12-14 06:00] VITALS: BP 164/79
[2020-12-14] MEDS: COMBIVENT RESPIMAT 100-20MCG INHALER 4GM INH SCH ×3 (07:13→20:32)
[2020-12-14] MEDS: REMEDY PHYTOPLEX Z-GUARD PASTE 113GM TUBE (FROM STOREROOM PRODUCT) TOP SCH ×3 (09:00→21:00)
[2020-12-14] MEDS: DOCUSATE SODIUM 100MG CAPSULE PO SCH ×2 (09:00→21:29)
[2020-12-14] MEDS: ENOXAPARIN 40MG/0.4ML SYRINGE (J1650 PER 10MG) SC SCH (09:07)
[2020-12-14] MEDS: ASCORBIC ACID 500 MG TAB PO SCH (09:08)
[2020-12-14] MEDS: guaiFENesin 200 MG TAB PO SCH ×3 (09:08→21:27)
[2020-12-14] MEDS: FUROSEMIDE 40 MG TAB PO SCH (09:08)
[2020-12-14] MEDS: LACTOBACILLUS ACIDOPHILUS CAP (BACID) PO SCH ×3 (09:08→21:29)
[2020-12-14] MEDS: DOXYCYCLINE HYCLATE 100MG TABLET PO SCH ×2 (09:08→21:27)
[2020-12-14] MEDS: MEMANTINE 5MG TABLET (NAMENDA) PO SCH (09:08)
[2020-12-14] MEDS: FLUTICASONE PROP 0.05% NASAL SPRAY 16 GM (FLONASE) NARES SCH ×2 (09:09→21:29)
[2020-12-14] MEDS: DICLOFENAC EPOLAMINE 1.3 % PATCH TOP SCH ×2 (09:09→21:30)
[2020-12-14 14:00] VITALS: BP 157/77
--- NOTE | 2020-12-14 16:16 | IPNPDOC ---
Text Note Date of Service The patient was seen on 12/14/20. NOTE Mr. Puckett is a 75 year old male with stage IV prostate CA s/p chemo on hormonal therapy, asthma, and DM who was initially admitted for viral pneumonia and then sent to ARU for rehab. Doing well.No concerns. Exam Eye Negative: Sclera icteric ENT Exam: Positive: Atraumatic Neck Exam: Positive: Supple Chest Exam: Positive: Clear to auscultation; Negative: Rales, Rhonchi, Wheezing Heart Exam: Positive: Rate Normal, Regular Rhythm Abdomen Exam: Positive: Normal bowel sounds, Soft; Negative: Tenderness Extremity Exam: Negative: Edema Neuro Exam: Positive: Normal Speech Psych Exam: Positive: Mental status NL, Mood NL Assessment /Plan Mr. Puckett is a 75 year old male with stage IV prostate CA s/p chemo on hormonal therapy, asthma, and DM who was initially admitted for viral pneumonia and then sent to ARU for rehab. He is doing well at room air. No fever or leukocytosis. Procalcitonin was negative. On doxycycline for atypicals Plan 1. Debility -Being managed in the ARU 2. RSV pneumoniaPneumonia -No leukocytosis or hypoxia, but has fever and CXR opacity -Procalcitonin negative. Most likely viral pneumonia -Doxycycline day 3 (for atypicals. Total course of 5 days planned) 3. Asthma -Stable -Continue Flonase and montelukast -PRN duonebs 4. Hypertension -Continue atenolol and furosemide 5. GERD -Continue famotidine and omeprazole 6. Dementia -Continue donepezil and memantine 7. Depression/anxiety -Continue Cymbalta 8. Metastatic prostate CA -Continue norco and morphine for pain control -Continue tamsulosin -Patient to receiving hormonal therapy every 3 months as outpatient 9. DVT ppx -Lovenox Disposition: Per ARU VS,Rosey, I+O VS, Rosey, I+O Vital Signs Date Time Temp Pulse Resp B/P (MAP) Pulse Ox O2 Delivery O2 Flow Rate FiO2 12/14/20 14:00 97.8 70 18 157/77 (103) 100 Room Air I&O- Last 24 Hours up to 6 AM 12/14/20 06:00 Intake Total 1370 ml Balance 1370 ml SHARLENE ORTEGA MD Dec 14, 2020 16:16
[2020-12-14 20:00] VITALS: BP 155/74
[2020-12-14] MEDS: TAMSULOSIN 0.4 MG CAP PO SCH (21:26)
[2020-12-14] MEDS: SENNA 8.6 MG TAB (SENOKOT) PO SCH (21:27)
[2020-12-14] MEDS: ASPIRIN 81MG ENTERIC TABLET PO SCH (21:27)
[2020-12-14] MEDS: DULoxetine 30 MG CAP (CYMBALTA) PO SCH (21:28)
[2020-12-14] MEDS: DONEPEZIL 5 MG TAB PO SCH (21:28)
[2020-12-14] MEDS: FAMOTIDINE 20 MG TAB PO SCH (21:28)
[2020-12-14] MEDS: ATORVASTATIN 20 MG TAB PO SCH (21:28)
[2020-12-14] MEDS: MONTELUKAST 10 MG TAB PO SCH (21:29)
[2020-12-14] MEDS: traZODone 25MG PER 1/2 TABLET PO SCH (21:29)
[2020-12-14] MEDS: ATENOLOL 12.5MG PER 1/2 TABLET PO SCH (21:29)
[2020-12-15 06:00] VITALS: BP 164/77
[2020-12-15 06:56] LABS: BASO % 0.6 % (0.0-1.0); EOS # 0.1 10^3/uL (0.0-0.5); EOS % 2.2 % (0.0-3.0); HEMATOCRIT 32.7 % (42.0-52.0); HEMOGLOBIN 10.8 g/dl (13.5-17.5); LYMPH % 20.2 % (24.0-44.0); MEAN CORPUSCULAR HEMOGLOBIN 29.7 pg (27.0-33.0); MEAN CORPUSCULAR VOLUME 89.8 fl (80.0-96.0); MONO # 0.5 10^3/uL (0.0-0.8); MONO % 9.8 % (2.0-8.0); NEUTROPHILS # 3.3 10^3/uL (1.5-8.5); NEUTROPHILS % 66.4 % (36.0-66.0); PLATELET COUNT, AUTOMATED 253 10^3/uL (150-450); RED BLOOD COUNT 3.64 10^6/uL (4.30-6.10)
[2020-12-15 07:15] LABS: BLOOD UREA NITROGEN 21 MG/DL (7-18); CALCIUM LEVEL 9.1 MG/DL (8.8-10.2); CARBON DIOXIDE LEVEL 28 MEQ/L (21-32); CHLORIDE LEVEL 106 MEQ/L (98-107); CREATININE FOR GFR 0.83 MG/DL (0.70-1.30); GLOMERULAR FILTRATION RATE > 60.0 (>42); GLUCOSE, FASTING 210 MG/DL (70-100); POTASSIUM SERUM 4.2 MEQ/L (3.5-5.1); SODIUM LEVEL 140 MEQ/L (136-145)
[2020-12-15] MEDS: COMBIVENT RESPIMAT 100-20MCG INHALER 4GM INH SCH ×3 (07:22→18:02)
[2020-12-15] MEDS: REMEDY PHYTOPLEX Z-GUARD PASTE 113GM TUBE (FROM STOREROOM PRODUCT) TOP SCH ×3 (09:00→20:40)
--- NOTE | 2020-12-15 09:06 | IPNPDOC ---
PM&R Progress Note DATE OF SERVICE: Dec 15, 2020 Reception Specialist Progress Note Subjective: Patient seen in his room stating his left knee feels less sore since starting the flector patch He appeared calm, comfortable, and confused. REVIEW OF SYSTEMS: The following is a completed review of systems and has been reviewed. Review of systems otherwise unremarkable. PAIN: Patient self reports right hip and left knee pain EYES: No recent vision changes EARS, NOSE, & THROAT: No throat pain, or dysphagia, or rhinorrhea CARDIOVASCULAR: Denies chest pain or palpitations PULMONARY: Denies shortness of breath GASTROINTESTINAL: Denies constipation/diarrhea GENITOURINARY: +urinary incontinence (chronic) MUSCULOSKELETAL: generalized weakness NEUROLOGICAL:+ paresthesias HEMATOLOGICAL: denies easy bruising SKIN: denies rash PSYCHIATRIC:+ confused All other review of systems found to be negative. PHYSICAL EXAMINATION: VITAL SIGNS: Please see below. GENERAL: Pleasant and cooperative. No acute distress. HEENT: PERRL. Extraocular movements intact. Clear conjunctiva CARDIOVASCULAR: Regular rate and rhythm. No murmurs, rubs, or gallops LUNGS: clear to auscultation bilaterally. No wheezes. No rhonchi ABDOMEN: Soft, nontender, nondistended. Positive bowel sounds. Normal active bowel sounds NEUROLOGICAL: Alert and oriented to self, and , not place or time Cranial nerves II through XII grossly intact. Sensation decreased to light touch stocking pattern EXTREMITIES: 5\\5 strength bilateral upper extremities. 5\\5 strength right lower extremity. 5/5 strength in left lower extremity. left knee with small effusion (resolved) +bilat LE edema (improving) ASSESSMENT:75-year-old M with past medical history of stage 4 prostate cancer who presents status post recurrent falls and weakness in setting on pneumonia PLAN: 1. Rehab- PT/OT advance mobility and ADLS, fall recovery, balance training, strengthen/stretch/maintain ROM all 4 limbs 2. Neuro- hx of dementia contributing to overall functional debility, c/u namenda and donepezil -neuro- patient with peripheral polyneuropathy on exam possibly due to hx of d iabetes contributing to overall decreased function and increased falls 3. CArdiac- hx of HTN c/u BP meds, mildly elevated BPs will increase atenolol 12.5 mg frequency to BID -CAD s/p cardiac stent, c/u ASA -HLD- c/u statin -CHF? patient on lasix, given edema on exam, will fluis restrict, will monitor daily weights -medicine consulted to assist in overall management 4. Resp- c/u doxycycline for RSV PNA with suspected superimposed bacterial infection, guaifenesin, combivent, monitor for decline -hx of asthma c/u singulair 5. Onc- stage 4 prostate cancer s/p chemo, c/u hormonal therapy -recent CXR showing possible bony metastases, patient to follow-up with oncologist -recent abdomen ct/pelvis showing, "There is diffuse widespread skeletal blastic metastasis." given patient's recurrent falls and reported right hip pain ordered hip X-rays to r/o fracture- no fracture, +bony mets 6. Pain- c/u norco and morphine, c/u flector patch to left knee 7. Psych- c/u cymbalta -trazodone qhs 8. - hx of prostate cancer c/u flomax, monitor PVRs 9. Endo- hx of DM diet controlled 10. Dispo- TBD Allergies Coded Allergies: lidocaine (Verified Allergy, Severe, anaphylaxsis, 12/09/20) Vital Signs Vital Signs Date Time Temp Pulse Resp B/P (MAP) Pulse Ox O2 Delivery O2 Flow Rate FiO2 12/15/20 06:00 98.2 63 18 164/77 (106) 100 Room Air Laboratory Data CBC/BMP Laboratory Tests 12/15/20 06:35 Labs 24H Laboratory Tests 2 12/15/20 06:35: Immature Granulocyte % (Auto) 0.8, Neutrophils (%) (Auto) 66.4H, Lymphocytes (%) (Auto) 20.2L, Monocytes (%) (Auto) 9.8H, Eosinophils (%) (Auto) 2.2, Basophils (%) (Auto) 0.6, Neutrophils # (Auto) 3.3, Lymphocytes # (Auto) 1.0L, Monocytes # (Auto) 0.5, Eosinophils # (Auto) 0.1, Basophils # (Auto) 0.0, Nucleated Red Blood Cells % (auto) 0.0, Anion Gap 6L, Glomerular Filtration Rate > 60.0, Calcium Level 9.1 Current Medications Current Medications Current Medications Medications (Trade) Dose Ordered Sig/Sancho Route PRN Reason Start Time Stop Time Status Last Admin Dose Admin Acetaminophen (Tylenol Tab) 650 mg Q12HP PRN PO fever 12/11/20 15:35 12/11/20 20:51 Acetaminophen/ Hydrocodone Bitart ([place], Anexsia 5/325) 1 tab Q4HP PRN PO MODERATE PAIN (PS 5-7) 12/11/20 15:35 Albuterol/ Ipratropium (Combivent Respimat 100-20mcg) 1 puff RTID INH 12/11/20 20:00 12/15/20 07:22 Ascorbic Acid (Vitamin C) 500 mg DAILY PO 12/12/20 09:00 12/14/20 09:08 Aspirin (Ecotrin) 81 mg QHS PO 12/11/20 21:00 12/14/20 21:27 Atenolol (Tenormin) 12.5 mg QHS PO 12/11/20 21:00 12/14/20 21:29 Atorvastatin Calcium (Lipitor) 20 mg QHS PO 12/11/20 21:00 12/14/20 21:28 Bisacodyl (Dulcolax Suppository) 10 mg DAILYPRN PRN PA CONSTIPATION 12/11/20 15:35 Diclofenac Epolamine (Flector 1.3%) TO LEFT KNEE Q12H TOP 12/13/20 21:00 12/14/20 21:30 Docusate Sodium (Colace) 100 mg BID PO 12/11/20 21:00 12/14/20 21:29 Donepezil HCl (AriCEPT) 10 mg QHS PO 12/11/20 21:00 12/14/20 21:28 Doxycycline Hyclate (Vibramycin) 100 mg BID PO 12/11/20 21:00 12/15/20 09:01 DC 12/14/20 21:27 Duloxetine HCl (Cymbalta) 30 mg QHS PO 12/11/20 21:00 12/14/20 21:28 Enoxaparin Sodium (Lovenox) 40 mg DAILY SC 12/12/20 09:00 12/14/20 09:07 Famotidine (Pepcid) 40 mg QHS PO 12/11/20 21:00 12/14/20 21:28 Fluticasone Propionate (Flonase 0.05% Nasal [place]) 1 spray BID NARES 12/11/20 21:00 12/14/20 21:29 Furosemide (Lasix) 40 mg DAILY PO 12/12/20 09:00 12/14/20 09:08 Guaifenesin (Robitussin Tab) 400 mg TID PO 12/11/20 16:00 12/14/20 21:27 Home Med (Med Rec Complete!) ASDIRECTED XX 12/11/20 15:10 12/11/20 16:47 DC Lactobacillus Acidophilus (Bacid) 1 ea TID PO 12/11/20 16:00 12/14/20 21:29 Memantine (Namenda) 10 mg QAM PO 12/12/20 09:00 12/14/20 09:08 Montelukast Sodium (Singulair) 10 mg QHS PO 12/11/20 21:00 12/14/20 21:29 Morphine Sulfate (Ms Contin) 15 mg QHS PRN PO pain >8/10 12/11/20 15:35 Polyethylene Glycol (Miralax) 1 pkt DAILY PRN PO CONSTIPATION 12/11/20 15:35 Senna (Senokot) 1 tab QHS PO 12/11/20 21:00 12/14/20 21:27 Tamsulosin HCl (Flomax) 0.4 mg QHS PO 12/11/20 21:00 12/14/20 21:26 Trazodone HCl (Desyrel) 25 mg QHS PO 12/12/20 21:00 12/14/20 21:29 NESTOR KING MD Dec 15, 2020 09:06
[2020-12-15] MEDS: ENOXAPARIN 40MG/0.4ML SYRINGE (J1650 PER 10MG) SC SCH (09:24)
[2020-12-15] MEDS: guaiFENesin 200 MG TAB PO SCH ×3 (09:24→20:39)
[2020-12-15] MEDS: MEMANTINE 5MG TABLET (NAMENDA) PO SCH (09:24)
[2020-12-15] MEDS: LACTOBACILLUS ACIDOPHILUS CAP (BACID) PO SCH ×3 (09:24→20:39)
[2020-12-15] MEDS: FUROSEMIDE 40 MG TAB PO SCH (09:24)
[2020-12-15] MEDS: DOXYCYCLINE HYCLATE 100MG TABLET PO SCH (09:24)
[2020-12-15] MEDS: ASCORBIC ACID 500 MG TAB PO SCH (09:24)
[2020-12-15] MEDS: DOCUSATE SODIUM 100MG CAPSULE PO SCH ×2 (09:24→20:39)
[2020-12-15] MEDS: DICLOFENAC EPOLAMINE 1.3 % PATCH TOP SCH ×2 (09:25→20:43)
[2020-12-15] MEDS: FLUTICASONE PROP 0.05% NASAL SPRAY 16 GM (FLONASE) NARES SCH ×2 (09:26→20:41)
[2020-12-15] MEDS: ATENOLOL 12.5MG PER 1/2 TABLET PO SCH ×2 (11:10→20:40)
[2020-12-15 14:00] VITALS: BP 118/61
[2020-12-15 20:00] VITALS: BP 131/78
[2020-12-15] MEDS: FAMOTIDINE 20 MG TAB PO SCH (20:39)
[2020-12-15] MEDS: DULoxetine 30 MG CAP (CYMBALTA) PO SCH (20:39)
[2020-12-15] MEDS: ASPIRIN 81MG ENTERIC TABLET PO SCH (20:39)
[2020-12-15] MEDS: TAMSULOSIN 0.4 MG CAP PO SCH (20:39)
[2020-12-15] MEDS: MONTELUKAST 10 MG TAB PO SCH (20:39)
[2020-12-15] MEDS: SENNA 8.6 MG TAB (SENOKOT) PO SCH (20:39)
[2020-12-15] MEDS: DONEPEZIL 5 MG TAB PO SCH (20:39)
[2020-12-15] MEDS: traZODone 25MG PER 1/2 TABLET PO SCH (20:39)
[2020-12-15] MEDS: ACETAMINOPHEN TAB 650MG DOSE (2X325MG) PO PRN (20:40)
[2020-12-15] MEDS: ATORVASTATIN 20 MG TAB PO SCH (20:40)
[2020-12-16 06:00] VITALS: BP 100/58
[2020-12-16] MEDS: COMBIVENT RESPIMAT 100-20MCG INHALER 4GM INH SCH ×3 (07:34→19:34)
[2020-12-16] MEDS: DOCUSATE SODIUM 100MG CAPSULE PO SCH ×2 (09:00→20:29)
[2020-12-16] MEDS: REMEDY PHYTOPLEX Z-GUARD PASTE 113GM TUBE (FROM STOREROOM PRODUCT) TOP SCH ×3 (09:00→20:31)
[2020-12-16 09:06] VITALS: BP 133/67
[2020-12-16] MEDS: DICLOFENAC EPOLAMINE 1.3 % PATCH TOP SCH ×2 (09:08→20:28)
[2020-12-16] MEDS: ACETAMINOPHEN TAB 650MG DOSE (2X325MG) PO PRN ×2 (09:09→20:30)
[2020-12-16] MEDS: MEMANTINE 5MG TABLET (NAMENDA) PO SCH (09:09)
[2020-12-16] MEDS: FUROSEMIDE 40 MG TAB PO SCH (09:09)
[2020-12-16] MEDS: ASCORBIC ACID 500 MG TAB PO SCH (09:09)
[2020-12-16] MEDS: LACTOBACILLUS ACIDOPHILUS CAP (BACID) PO SCH ×3 (09:09→20:29)
[2020-12-16] MEDS: ATENOLOL 12.5MG PER 1/2 TABLET PO SCH ×2 (09:10→20:30)
[2020-12-16] MEDS: ENOXAPARIN 40MG/0.4ML SYRINGE (J1650 PER 10MG) SC SCH (09:10)
[2020-12-16] MEDS: FLUTICASONE PROP 0.05% NASAL SPRAY 16 GM (FLONASE) NARES SCH ×2 (09:10→20:28)
[2020-12-16] MEDS: guaiFENesin 200 MG TAB PO SCH ×3 (09:10→20:29)
[2020-12-16 14:00] VITALS: BP 132/70
[2020-12-16 20:00] VITALS: BP 171/75
[2020-12-16] MEDS: ATORVASTATIN 20 MG TAB PO SCH (20:29)
[2020-12-16] MEDS: SENNA 8.6 MG TAB (SENOKOT) PO SCH (20:29)
[2020-12-16] MEDS: DULoxetine 30 MG CAP (CYMBALTA) PO SCH (20:29)
[2020-12-16] MEDS: FAMOTIDINE 20 MG TAB PO SCH (20:29)
[2020-12-16] MEDS: TAMSULOSIN 0.4 MG CAP PO SCH (20:29)
[2020-12-16] MEDS: DONEPEZIL 5 MG TAB PO SCH (20:29)
[2020-12-16] MEDS: traZODone 25MG PER 1/2 TABLET PO SCH (20:30)
[2020-12-16] MEDS: ASPIRIN 81MG ENTERIC TABLET PO SCH (20:30)
[2020-12-16] MEDS: MONTELUKAST 10 MG TAB PO SCH (20:30)
[2020-12-17 06:00] VITALS: BP_SYST 131; BP_SYST 150; BP_DIAS 63; BP_DIAS 79
[2020-12-17] MEDS: COMBIVENT RESPIMAT 100-20MCG INHALER 4GM INH SCH ×3 (07:24→20:02)
[2020-12-17] MEDS: LACTOBACILLUS ACIDOPHILUS CAP (BACID) PO SCH ×3 (08:26→20:26)
[2020-12-17] MEDS: guaiFENesin 200 MG TAB PO SCH ×3 (08:27→20:27)
[2020-12-17] MEDS: FUROSEMIDE 40 MG TAB PO SCH (08:28)
[2020-12-17] MEDS: DICLOFENAC EPOLAMINE 1.3 % PATCH TOP SCH ×2 (08:28→20:28)
[2020-12-17] MEDS: ASCORBIC ACID 500 MG TAB PO SCH (08:28)
[2020-12-17] MEDS: ENOXAPARIN 40MG/0.4ML SYRINGE (J1650 PER 10MG) SC SCH (08:28)
[2020-12-17] MEDS: FLUTICASONE PROP 0.05% NASAL SPRAY 16 GM (FLONASE) NARES SCH ×2 (08:28→20:27)
[2020-12-17] MEDS: DOCUSATE SODIUM 100MG CAPSULE PO SCH ×2 (08:29→20:29)
[2020-12-17] MEDS: REMEDY PHYTOPLEX Z-GUARD PASTE 113GM TUBE (FROM STOREROOM PRODUCT) TOP SCH ×4 (08:29→20:28)
[2020-12-17] MEDS: MEMANTINE 5MG TABLET (NAMENDA) PO SCH (08:29)
[2020-12-17] MEDS: ATENOLOL 12.5MG PER 1/2 TABLET PO SCH ×2 (09:00→20:27)
[2020-12-17] MEDS: OMEPRAZOLE 20 MG CAP PO SCH (11:20)
[2020-12-17 14:00] VITALS: BP 118/64
[2020-12-17] MEDS: ACETAMINOPHEN TAB 650MG DOSE (2X325MG) PO PRN (15:06)
[2020-12-17 20:00] VITALS: BP 145/71
[2020-12-17] MEDS: MONTELUKAST 10 MG TAB PO SCH (20:26)
[2020-12-17] MEDS: TAMSULOSIN 0.4 MG CAP PO SCH (20:26)
[2020-12-17] MEDS: ASPIRIN 81MG ENTERIC TABLET PO SCH (20:26)
[2020-12-17] MEDS: FAMOTIDINE 20 MG TAB PO SCH (20:26)
[2020-12-17] MEDS: DULoxetine 30 MG CAP (CYMBALTA) PO SCH (20:26)
[2020-12-17] MEDS: traZODone 25MG PER 1/2 TABLET PO SCH (20:26)
[2020-12-17] MEDS: ATORVASTATIN 20 MG TAB PO SCH (20:27)
[2020-12-17] MEDS: DONEPEZIL 5 MG TAB PO SCH (20:27)
[2020-12-17] MEDS: SENNA 8.6 MG TAB (SENOKOT) PO SCH (20:29)
[2020-12-18 06:00] VITALS: BP 133/74
[2020-12-18 07:10] LABS: BASO % 0.5 % (0.0-1.0); EOS # 0.1 10^3/uL (0.0-0.5); EOS % 2.2 % (0.0-3.0); HEMATOCRIT 31.2 % (42.0-52.0); HEMOGLOBIN 10.3 g/dl (13.5-17.5); LYMPH # 1.1 10^3/uL (1.5-5.0); LYMPH % 27.1 % (24.0-44.0); MONO # 0.6 10^3/uL (0.0-0.8); MONO % 13.7 % (2.0-8.0); NEUTROPHILS # 2.3 10^3/uL (1.5-8.5); NEUTROPHILS % 55.5 % (36.0-66.0); PLATELET COUNT, AUTOMATED 266 10^3/uL (150-450); RED BLOOD COUNT 3.43 10^6/uL (4.30-6.10); WHITE BLOOD COUNT 4.2 10^3/uL (4.0-10.0)
[2020-12-18 07:36] LABS: BLOOD UREA NITROGEN 23 MG/DL (7-18); CALCIUM LEVEL 8.6 MG/DL (8.8-10.2); CARBON DIOXIDE LEVEL 29 MEQ/L (21-32); CHLORIDE LEVEL 109 MEQ/L (98-107); CREATININE FOR GFR 0.81 MG/DL (0.70-1.30); GLOMERULAR FILTRATION RATE > 60.0 (>42); GLUCOSE, FASTING 135 MG/DL (70-100); POTASSIUM SERUM 4.4 MEQ/L (3.5-5.1); SODIUM LEVEL 142 MEQ/L (136-145)
[2020-12-18] MEDS: COMBIVENT RESPIMAT 100-20MCG INHALER 4GM INH SCH ×3 (07:37→20:50)
[2020-12-18] MEDS ORDERED: OMEPRAZOLE 20 MG CAP PO SCH (09:00)
[2020-12-18] MEDS: REMEDY PHYTOPLEX Z-GUARD PASTE 113GM TUBE (FROM STOREROOM PRODUCT) TOP SCH ×3 (09:00→21:50)
[2020-12-18] MEDS: ENOXAPARIN 40MG/0.4ML SYRINGE (J1650 PER 10MG) SC SCH (09:37)
[2020-12-18] MEDS: ATENOLOL 12.5MG PER 1/2 TABLET PO SCH ×2 (09:38→21:48)
[2020-12-18] MEDS: guaiFENesin 200 MG TAB PO SCH ×3 (09:38→21:48)
[2020-12-18] MEDS: DOCUSATE SODIUM 100MG CAPSULE PO SCH ×2 (09:38→21:49)
[2020-12-18] MEDS: DICLOFENAC EPOLAMINE 1.3 % PATCH TOP SCH ×2 (09:38→21:49)
[2020-12-18] MEDS: OMEPRAZOLE 20 MG CAP PO SCH (09:39)
[2020-12-18] MEDS: LACTOBACILLUS ACIDOPHILUS CAP (BACID) PO SCH ×3 (09:39→21:47)
[2020-12-18] MEDS: ASCORBIC ACID 500 MG TAB PO SCH (09:39)
[2020-12-18] MEDS: MEMANTINE 5MG TABLET (NAMENDA) PO SCH (09:39)
[2020-12-18] MEDS: FUROSEMIDE 40 MG TAB PO SCH (09:39)
[2020-12-18] MEDS: FLUTICASONE PROP 0.05% NASAL SPRAY 16 GM (FLONASE) NARES SCH ×2 (09:40→21:50)
[2020-12-18 14:00] VITALS: BP 154/72
--- NOTE | 2020-12-18 14:15 | IPNPDOC ---
Text Note Date of Service The patient was seen on 12/18/20. NOTE Mr. Puckett is a 75 year old male with stage IV prostate CA s/p chemo on hormonal therapy, asthma, and DM who was initially admitted for viral pneumonia and then sent to ARU for rehab. Doing well. No overnight events Exam Eye Negative: Sclera icteric ENT Exam: Positive: Atraumatic Neck Exam: Positive: Supple Chest Exam: Positive: Clear to auscultation; Negative: Rales, Rhonchi, Wheezing Heart Exam: Positive: Rate Normal, Regular Rhythm Abdomen Exam: Positive: Normal bowel sounds, Soft; Negative: Tenderness Extremity Exam: Negative: Edema Neuro Exam: Positive: Normal Speech Psych Exam: Positive: Mental status NL, Mood NL Assessment /Plan Mr. Puckett is a 75 year old male with stage IV prostate CA s/p chemo on hormonal therapy, asthma, and DM who was initially admitted for viral pneumonia and then sent to ARU for rehab. He is doing well at room air. No fever or leukocytosis. Procalcitonin was negative. Plan 1. Debility -Being managed in the ARU 2. RSV pneumoniaPneumonia -No leukocytosis or hypoxia, but has fever and CXR opacity -Procalcitonin negative. Most likely viral pneumonia -Completed abx 3. Asthma -Stable -Continue Flonase and montelukast -PRN duonebs 4. Hypertension -Continue atenolol and furosemide 5. GERD -Continue famotidine and omeprazole 6. Dementia -Continue donepezil and memantine 7. Depression/anxiety -Continue Cymbalta 8. Metastatic prostate CA -Continue norco and morphine for pain control -Continue tamsulosin -Patient to receiving hormonal therapy every 3 months as outpatient 9. DVT ppx -Lovenox Disposition: Per ARU VS,Rosey, I+O VS, Rosey, I+O Laboratory Tests 12/18/20 06:27 Vital Signs Date Time Temp Pulse Resp B/P (MAP) Pulse Ox O2 Delivery O2 Flow Rate FiO2 12/18/20 09:38 68 133/74 12/18/20 06:00 97.6 18 98 Room Air I&O- Last 24 Hours up to 6 AM 12/18/20 06:00 Intake Total 2460 ml Balance 2460 ml SHARLENE ORTEGA MD Dec 18, 2020 14:15
[2020-12-18 21:00] VITALS: BP 135/71
[2020-12-18] MEDS: FAMOTIDINE 20 MG TAB PO SCH (21:47)
[2020-12-18] MEDS: SENNA 8.6 MG TAB (SENOKOT) PO SCH (21:48)
[2020-12-18] MEDS: ATORVASTATIN 20 MG TAB PO SCH (21:48)
[2020-12-18] MEDS: TAMSULOSIN 0.4 MG CAP PO SCH (21:48)
[2020-12-18] MEDS: DULoxetine 30 MG CAP (CYMBALTA) PO SCH (21:48)
[2020-12-18] MEDS: MONTELUKAST 10 MG TAB PO SCH (21:49)
[2020-12-18] MEDS: DONEPEZIL 5 MG TAB PO SCH (21:49)
[2020-12-18] MEDS: traZODone 25MG PER 1/2 TABLET PO SCH (21:49)
[2020-12-18] MEDS: ASPIRIN 81MG ENTERIC TABLET PO SCH (21:49)
[2020-12-19 06:22] VITALS: BP 154/70
[2020-12-19] MEDS: COMBIVENT RESPIMAT 100-20MCG INHALER 4GM INH SCH ×2 (08:00→13:02)
[2020-12-19] MEDS: ENOXAPARIN 40MG/0.4ML SYRINGE (J1650 PER 10MG) SC SCH (08:59)
[2020-12-19] MEDS: MEMANTINE 5MG TABLET (NAMENDA) PO SCH (08:59)
[2020-12-19] MEDS: guaiFENesin 200 MG TAB PO SCH (08:59)
[2020-12-19] MEDS: DOCUSATE SODIUM 100MG CAPSULE PO SCH (08:59)
[2020-12-19] MEDS: ASCORBIC ACID 500 MG TAB PO SCH (09:00)
[2020-12-19] MEDS: LACTOBACILLUS ACIDOPHILUS CAP (BACID) PO SCH (09:00)
[2020-12-19] MEDS: FUROSEMIDE 40 MG TAB PO SCH (09:00)
[2020-12-19] MEDS: OMEPRAZOLE 20 MG CAP PO SCH (09:01)
[2020-12-19 09:03] VITALS: BP 167/72
[2020-12-19] MEDS: FLUTICASONE PROP 0.05% NASAL SPRAY 16 GM (FLONASE) NARES SCH (09:03)
[2020-12-19] MEDS: ATENOLOL 12.5MG PER 1/2 TABLET PO SCH (09:03)
[2020-12-19] MEDS: REMEDY PHYTOPLEX Z-GUARD PASTE 113GM TUBE (FROM STOREROOM PRODUCT) TOP SCH (09:04)
[2020-12-19] MEDS: DICLOFENAC EPOLAMINE 1.3 % PATCH TOP SCH (09:05)
[2020-12-19] MEDS ORDERED: ESOM1CAP5 PO (10:28)
[2020-12-19] MEDS ORDERED: FURO40TA2 PO (10:28)
[2020-12-19] MEDS ORDERED: ASCO50TA PO (10:28)
[2020-12-19] MEDS ORDERED: CYMB1CAP5 PO (10:28)
[2020-12-19] MEDS ORDERED: NAME10TA PO (10:28)
[2020-12-19] MEDS ORDERED: PROBCAP14 PO (10:28)
[2020-12-19] MEDS ORDERED: HYDR-3715 PO (10:28)
[2020-12-19] MEDS ORDERED: ARIC1TAB2 PO (10:28)
[2020-12-19] MEDS ORDERED: FLOM0.4C39 PO (10:28)
[2020-12-19] MEDS ORDERED: FAMO40TA3 PO (10:28)
[2020-12-19] MEDS ORDERED: MONT10TA10 PO (10:28)
[2020-12-19] MEDS ORDERED: ATEN25TA PO (10:28)
[2020-12-19] MEDS ORDERED: ATOR1TAB21 PO (10:28)
[2020-12-19] MEDS ORDERED: ASPI-551 PO (10:28)
[2020-12-19] MEDS ORDERED: NYSTATIN 100,000 UNITS/GM TOPICAL PWD 15 GM TOP PRN (12:00)
[2020-12-19] MEDS ORDERED: DICL20GE TP (12:21)
[2020-12-19] MEDS ORDERED: NYST10006 TOP (12:21)
--- NOTE | 2020-12-19 13:47 | IPNPDOC ---
Text Note Date of Service The patient was seen on 12/19/20. NOTE Mr. Puckett is a 75 year old male with stage IV prostate CA s/p chemo on hormonal therapy, asthma, and DM who was initially admitted for viral pneumonia and then sent to ARU for rehab. Doing well. No overnight events Exam Eye Negative: Sclera icteric ENT Exam: Positive: Atraumatic Neck Exam: Positive: Supple Chest Exam: Positive: Clear to auscultation; Negative: Rales, Rhonchi, Wheezing Heart Exam: Positive: Rate Normal, Regular Rhythm Abdomen Exam: Positive: Normal bowel sounds, Soft; Negative: Tenderness Extremity Exam: Negative: Edema Neuro Exam: Positive: Normal Speech Psych Exam: Positive: Mental status NL, Mood NL Assessment /Plan Mr. Puckett is a 75 year old male with stage IV prostate CA s/p chemo on hormonal therapy, asthma, and DM who was initially admitted for viral pneumonia and then sent to ARU for rehab. He is doing well at room air. No fever or leukocytosis. Procalcitonin was negative. Plan 1. Debility -Being managed in the ARU 2. RSV pneumoniaPneumonia -No leukocytosis or hypoxia, but has fever and CXR opacity -Procalcitonin negative. Most likely viral pneumonia -Completed abx 3. Asthma -Stable -Continue Flonase and montelukast -PRN duonebs 4. Hypertension -Continue atenolol and furosemide 5. GERD -Continue famotidine and omeprazole 6. Dementia -Continue donepezil and memantine 7. Depression/anxiety -Continue Cymbalta 8. Metastatic prostate CA -Continue norco and morphine for pain control -Continue tamsulosin -Patient to receiving hormonal therapy every 3 months as outpatient 9. DVT ppx -Lovenox Disposition: Per ARU VS,Fishbone, I+O VS, Fishbone, I+O Vital Signs Date Time Temp Pulse Resp B/P (MAP) Pulse Ox O2 Delivery O2 Flow Rate FiO2 12/19/20 09:03 71 167/72 12/19/20 06:22 97.8 18 99 Room Air I&O- Last 24 Hours up to 6 AM 12/19/20 06:00 Intake Total 1260 ml Balance 1260 ml SHARLENE ORTEGA MD Dec 19, 2020 13:47
[2020-12-19] MEDS ORDERED: TRIAMCINOLONE ACET 0.1% OINTMENT 15 GM TOP SCH (14:00)
[2021-12-17] MEDS ORDERED: OMEPRAZOLE 20 MG CAP PO SCH (09:00)
== END 2020-12-19 13:30 | disposition home health service (06) | DRG 73 ==
LOC: M PM&R 16:35
PROVIDERS: ADMIT Physical Medicine & Rehabilitation; ATTEND Physical Medicine & Rehabilitation
DX: E11.42 Type 2 diabetes mellitus with diabetic polyneuropathy (principal); J18.9 Pneumonia, unspecified organism; C79.51 Secondary malignant neoplasm of bone; R53.1 Weakness; J45.909 Unspecified asthma, uncomplicated; I25.10 Atherosclerotic heart disease of native coronary artery without angina pectoris; F03.90 Unspecified dementia, unspecified severity, without behavioral disturbance, psychotic disturbance, mood disturbance, and anxiety; R29.6 Repeated falls; Z74.09 Other reduced mobility; Z74.1 Need for assistance with personal care; R32 Unspecified urinary incontinence; R20.0 Anesthesia of skin; Z98.41 Cataract extraction status, right eye; Z98.42 Cataract extraction status, left eye; C61 Malignant neoplasm of prostate; Z92.21 Personal history of antineoplastic chemotherapy; I11.0 Hypertensive heart disease with heart failure; Z95.5 Presence of coronary angioplasty implant and graft; I50.9 Heart failure, unspecified; Z79.82 Long term (current) use of aspirin; Z79.899 Other long term (current) drug therapy; Z88.4 Allergy status to anesthetic agent; K21.9 Gastro-esophageal reflux disease without esophagitis; F41.9 Anxiety disorder, unspecified

== ENCOUNTER → 2021-03-07 | Outpatient (CLI) | payer MEDICARE ==
[~2021-03-07] MED LIST changes: +ASCO50TA PO; +ASPI-551 PO; +CALC200T15 PO; +CYMB1CAP5 PO; +DICL20GE TP; +HYDR-3715 PO; +NYST10006 TOP
--- NOTE | 2021-03-08 14:02 | ECGEPIP ---
[facility] Test Date: 2021-03-07 Pat Name: JIM CROSS Department: Room: - Gender: Male Roving Hauler: SHAJI : 1945 Requested By: COLIN Shin Order Number: [id number] Reading MD: Shadi Tripp Measurements Intervals [place] Rate: 68 P: 19 [place]: 116 QRS: 0 QRSD: 86 T: 57 QT: 406 QTc: 431 Interpretive Statements Normal sinus rhythm Nonspecific ST and T wave abnormality No significant change when compared to prior tracing of December 09, 2020 Electronically Signed on 03-08-2021 14:01:41 EDT by Shadi Tripp
== END ==
LOC: M EKG 12:24
PROVIDERS: ATTEND Psychiatry & Neurology Neurology
DX: F03.90 Unspecified dementia, unspecified severity, without behavioral disturbance, psychotic disturbance, mood disturbance, and anxiety (principal)

== ENCOUNTER 2021-06-12 14:50 | Emergency (ER) | payer MEDICARE ==
[~2021-06-12] VITALS: Ht 167.6 cm; Wt 87.5 kg
[~2021-06-12 14:50] MED LIST changes: -MONT10TA10 PO; +MONT10TA97 PO
[2021-06-12] MEDS ORDERED: NS 1,000 ML IV SCH (15:20)
[2021-06-12 16:24] LABS: BASO % 0.6 % (0.0-1.0); HEMATOCRIT 33.9 % (42.0-52.0); HEMOGLOBIN 11.3 g/dl (13.5-17.5); LYMPH # 0.5 10^3/uL (1.5-5.0); LYMPH % 16.1 % (24.0-44.0); MEAN CORPUSCULAR HGB CONC 33.3 g/dl (32.0-36.5); MEAN CORPUSCULAR VOLUME 89.9 fl (80.0-96.0); MONO # 0.6 10^3/uL (0.0-0.8); MONO % 19.9 % (2.0-8.0); NEUTROPHILS # 1.9 10^3/uL (1.5-8.5); NEUTROPHILS % 62.1 % (36.0-66.0); PLATELET COUNT, AUTOMATED 182 10^3/uL (150-450); RED BLOOD COUNT 3.77 10^6/uL (4.30-6.10); VENOUS BASE EXCESS 0.5 (-2.0-2.0); VENOUS O2 SATURATION 82.3 % (60.0-80.0); VENOUS PARTIAL PRESSURE CO2 45.4 mmHg (38.0-50.0); VENOUS PARTIAL PRESSURE O2 47.8 mmHg (30.0-50.0); VENOUS PH 7.376 UNITS (7.330-7.430); VENOUS STANDARD HCO3 24.6 MEQ/L; VENOUS TOTAL CO2 27.4 MEQ/L (24.0-28.0); WHITE BLOOD COUNT 3.1 10^3/uL (4.0-10.0)
[2021-06-12 17:14] LABS: ACETAMINOPHEN LEVEL < 2.0 UG/ML (10.0-30.0); ALBUMIN 3.5 GM/DL (3.2-5.2); ALT/SGPT 36 U/L (12-78); BILIRUBIN,DIRECT < 0.1 MG/DL (0.0-0.2); BILIRUBIN,TOTAL 0.2 MG/DL (0.2-1.0); BLOOD UREA NITROGEN 16 MG/DL (7-18); CALCIUM LEVEL 8.5 MG/DL (8.8-10.2); CARBON DIOXIDE LEVEL 26 MEQ/L (21-32); CHLORIDE LEVEL 105 MEQ/L (98-107); CREATININE FOR GFR 0.96 MG/DL (0.70-1.30); ETHYL ALCOHOL (ETHANOL) 0.004 % (0.000-0.010); GLOMERULAR FILTRATION RATE > 60.0 (>42); GLUCOSE, FASTING 159 MG/DL (70-100); POTASSIUM SERUM 4.7 MEQ/L (3.5-5.1); SALICYLATE LEVEL < 1.7 MG/DL (5.0-30.0); SODIUM LEVEL 137 MEQ/L (136-145); TOTAL PROTEIN 6.5 GM/DL (6.4-8.2)
[2021-06-12 17:18] LABS: CK-MB VALUE MASS < 1.0 NG/ML (<3.6); CPK CREATINE PHOSPHOKINASE 134 U/L (39-308); MB/CK RELATIVE INDEX 0.75 (< OR =4)
[2021-06-12 19:32] VITALS: BP 117/79
== END 2021-06-12 20:01 | disposition home or self-care (01) ==
LOC: EDBD 14:50 → M ED 14:50
DX: U07.1 COVID-19 (principal); B34.9 Viral infection, unspecified; I51.9 Heart disease, unspecified; I10 Essential (primary) hypertension; Z85.46 Personal history of malignant neoplasm of prostate; G89.29 Other chronic pain; Z95.5 Presence of coronary angioplasty implant and graft; Z79.82 Long term (current) use of aspirin; Z79.899 Other long term (current) drug therapy; Z88.8 Allergy status to other drugs, medicaments and biological substances

== ENCOUNTER → 2021-11-02 | Outpatient (CLI) | payer MEDICARE ==
[~2021-11-02] MED LIST changes: +GASTROGRAFIN SOLUTION 30ML (Q9963) As Ordered ONE; +ISOVUE-370 76% 100ML VIAL As Ordered ONE
== END ==
LOC: M RAD 14:13
PROVIDERS: ATTEND Internal Medicine Medical Oncology
DX: C61 Malignant neoplasm of prostate (principal); N28.1 Cyst of kidney, acquired; C79.51 Secondary malignant neoplasm of bone; K40.90 Unilateral inguinal hernia, without obstruction or gangrene, not specified as recurrent
CPT/HCPCS: 71260; 74177; Q9963; Q9967

== ENCOUNTER 2021-11-09 18:48 | Emergency (ER) | payer MEDICARE ==
[~2021-11-09] VITALS: Ht 167.6 cm; Wt 86.4 kg
[~2021-11-09 18:48] MED LIST changes: -GASTROGRAFIN SOLUTION 30ML (Q9963) As Ordered ONE; -ISOVUE-370 76% 100ML VIAL As Ordered ONE
[2021-11-09 18:49] VITALS: BP 148/72
== END 2021-11-09 21:40 | disposition left against medical advice (07) ==
LOC: M ED 18:48
DX: Z53.21 Procedure and treatment not carried out due to patient leaving prior to being seen by health care provider (principal)

== ENCOUNTER 2021-11-23 12:37 | Emergency (ER) | payer MEDICARE ==
[~2021-11-23] VITALS: Ht 167.6 cm; Wt 84.2 kg
[2021-11-23] MEDS ORDERED: MORPHINE 2 MG/ML 1ML VIAL IV ONE (13:15)
[2021-11-23 14:53] LABS: BASO # 0.1 10^3/uL (0.0-0.2); BASO % 0.9 % (0.0-1.0); EOS # 0.2 10^3/uL (0.0-0.5); EOS % 2.8 % (0.0-3.0); HEMATOCRIT 37.2 % (42.0-52.0); HEMOGLOBIN 12.4 g/dl (13.5-17.5); LYMPH # 1.4 10^3/uL (1.5-5.0); LYMPH % 26.2 % (24.0-44.0); MEAN CORPUSCULAR HEMOGLOBIN 30.1 pg (27.0-33.0); MEAN CORPUSCULAR HGB CONC 33.3 g/dl (32.0-36.5); MEAN CORPUSCULAR VOLUME 90.3 fl (80.0-96.0); MONO # 0.5 10^3/uL (0.0-0.8); MONO % 8.7 % (2.0-8.0); NEUTROPHILS # 3.2 10^3/uL (1.5-8.5); PLATELET COUNT, AUTOMATED 249 10^3/uL (150-450); RED BLOOD COUNT 4.12 10^6/uL (4.30-6.10); WHITE BLOOD COUNT 5.3 10^3/uL (4.0-10.0)
[2021-11-23 15:04] LABS: INR 0.92; PROTHROMBIN TIME 12.8 SECONDS (12.7-14.5)
[2021-11-23 15:25] LABS: CK-MB VALUE MASS 1.4 NG/ML (<3.6); MB/CK RELATIVE INDEX 1.59 (< OR =4)
[2021-11-23 15:30] LABS: BLOOD UREA NITROGEN 24 MG/DL (7-18); CALCIUM LEVEL 9.7 MG/DL (8.8-10.2); CARBON DIOXIDE LEVEL 27 MEQ/L (21-32); CHLORIDE LEVEL 106 MEQ/L (98-107); CREATININE FOR GFR 1.13 MG/DL (0.70-1.30); GLOMERULAR FILTRATION RATE > 60.0 (>42); GLUCOSE, FASTING 219 MG/DL (70-100); POTASSIUM SERUM 4.3 MEQ/L (3.5-5.1); SODIUM LEVEL 141 MEQ/L (136-145)
[2021-11-23 15:31] LABS: ALBUMIN 3.7 GM/DL (3.2-5.2); ALT/SGPT 22 U/L (12-78); BILIRUBIN,DIRECT 0.2 MG/DL (0.0-0.2); BILIRUBIN,TOTAL 0.3 MG/DL (0.2-1.0); FREE T4 0.78 NG/DL (0.76-1.46); LIPASE 90 U/L (73-393); TOTAL PROTEIN 7.4 GM/DL (6.4-8.2)
[2021-11-23] MEDS ORDERED: ISOVUE-370 76% 100ML VIAL As Ordered ONE (15:54)
[2021-11-23 16:40] LABS: CK-MB VALUE MASS 1.3 NG/ML (<3.6); MB/CK RELATIVE INDEX 0.64 (< OR =4)
[2021-11-23 18:46] LABS: CK-MB VALUE MASS 1.2 NG/ML (<3.6); MB/CK RELATIVE INDEX 1.76 (< OR =4)
[2021-11-23 20:02] VITALS: BP 140/78
== END 2021-11-23 20:09 | disposition home or self-care (01) ==
LOC: M ED 12:37
DX: R07.81 Pleurodynia (principal); R00.1 Bradycardia, unspecified; I25.10 Atherosclerotic heart disease of native coronary artery without angina pectoris; E11.9 Type 2 diabetes mellitus without complications; F03.90 Unspecified dementia, unspecified severity, without behavioral disturbance, psychotic disturbance, mood disturbance, and anxiety; C61 Malignant neoplasm of prostate; C79.51 Secondary malignant neoplasm of bone; Z95.5 Presence of coronary angioplasty implant and graft
CPT/HCPCS: 71275; 80048; 80076; 82550; 82553; 83690; 84439; 84443; 84484; 85025; 85610; 85730; 93005; 93041; 93971; 94760; 99285; J2270; Q9967

== ENCOUNTER 2021-12-19 01:50 | Observation (INO) | payer MEDICARE ==
[~2021-12-19] VITALS: Ht 185.4 cm; Wt 83.0 kg
[~2021-12-19 01:50] MED LIST changes: +FLUT15.820; -FLUT15.820 NARES
[2021-12-19 02:17] LABS: BASO % 0.4 % (0.0-1.0); EOS # 0.1 10^3/uL (0.0-0.5); EOS % 0.9 % (0.0-3.0); HEMATOCRIT 32.2 % (42.0-52.0); HEMOGLOBIN 10.9 g/dl (13.5-17.5); LYMPH # 1.2 10^3/uL (1.5-5.0); LYMPH % 11.8 % (24.0-44.0); MEAN CORPUSCULAR HEMOGLOBIN 30.4 pg (27.0-33.0); MEAN CORPUSCULAR HGB CONC 33.9 g/dl (32.0-36.5); MEAN CORPUSCULAR VOLUME 89.7 fl (80.0-96.0); MONO % 10.3 % (2.0-8.0); NEUTROPHILS # 7.7 10^3/uL (1.5-8.5); NEUTROPHILS % 76.3 % (36.0-66.0); PLATELET COUNT, AUTOMATED 240 10^3/uL (150-450); RED BLOOD COUNT 3.59 10^6/uL (4.30-6.10); WHITE BLOOD COUNT 10.1 10^3/uL (4.0-10.0)
[2021-12-19 02:43] LABS: CK-MB VALUE MASS 1.7 NG/ML (<3.6); MB/CK RELATIVE INDEX 1.87 (< OR =4)
[2021-12-19 02:51] LABS: BLOOD UREA NITROGEN 23 MG/DL (7-18); CALCIUM LEVEL 9.2 MG/DL (8.8-10.2); CARBON DIOXIDE LEVEL 24 MEQ/L (21-32); CHLORIDE LEVEL 106 MEQ/L (98-107); CREATININE FOR GFR 1.21 MG/DL (0.70-1.30); ETHYL ALCOHOL (ETHANOL) < 0.003 % (0.000-0.010); GLOMERULAR FILTRATION RATE > 60.0 (>42); GLUCOSE, FASTING 152 MG/DL (70-100); POTASSIUM SERUM 4.1 MEQ/L (3.5-5.1); SODIUM LEVEL 138 MEQ/L (136-145)
[2021-12-19 03:44] LABS: CK-MB VALUE MASS 1.3 NG/ML (<3.6); MB/CK RELATIVE INDEX 1.3 (< OR =4)
[2021-12-19] MEDS ORDERED: NS 1,000 ML IV SCH (05:50)
[2021-12-19] MEDS ORDERED: NS 500 ML IV ONE (05:50)
[2021-12-19] MEDS ORDERED: NEXI40CA PO (06:51)
[2021-12-19] MEDS ORDERED: DONE10TA90 PO (06:51)
[2021-12-19] MEDS ORDERED: ALBU8.5H INH (06:51)
[2021-12-19] MEDS ORDERED: MAGN400T35 PO (06:51)
[2021-12-19] MEDS ORDERED: HYDR-4571 PO (06:51)
[2021-12-19] MEDS ORDERED: C 50TAB PO (06:51)
[2021-12-19] MEDS ORDERED: METF-838 PO (06:51)
[2021-12-19] MEDS ORDERED: ATEN25TA PO (06:51)
[2021-12-19] MEDS ORDERED: ATOR40TA75 PO (06:51)
[2021-12-19] MEDS ORDERED: FLORCAP6 PO (06:51)
[2021-12-19] MEDS ORDERED: FENT12DI8 TD (06:51)
[2021-12-19] MEDS ORDERED: NAME10TA PO (06:51)
[2021-12-19] MEDS ORDERED: MIRA1POW3 PO (06:51)
[2021-12-19] MEDS ORDERED: DULO60CA35 PO (06:51)
[2021-12-19] MEDS ORDERED: HOME MED LIST COMPLETE! XX SCH (06:55)
[2021-12-19 07:01] LABS: RSV AMPLIFICATION NEGATIVE (NEGATIVE)
[2021-12-19] MEDS ORDERED: MIRALAX *UNIT DOSE* 17GM PACKET PO PRN (08:15)
[2021-12-19] MEDS ORDERED: ALBUTEROL 90 MCG/ACT 8GM HFA INHALER INH PRN (08:15)
[2021-12-19 08:42] LABS: BASO % 0.5 % (0.0-1.0); EOS # 0.1 10^3/uL (0.0-0.5); EOS % 0.9 % (0.0-3.0); HEMATOCRIT 30.5 % (42.0-52.0); HEMOGLOBIN 10.2 g/dl (13.5-17.5); LYMPH # 0.9 10^3/uL (1.5-5.0); LYMPH % 10.9 % (24.0-44.0); MEAN CORPUSCULAR HEMOGLOBIN 30.2 pg (27.0-33.0); MEAN CORPUSCULAR HGB CONC 33.4 g/dl (32.0-36.5); MEAN CORPUSCULAR VOLUME 90.2 fl (80.0-96.0); MONO # 0.9 10^3/uL (0.0-0.8); MONO % 11.5 % (2.0-8.0); NEUTROPHILS # 5.9 10^3/uL (1.5-8.5); NEUTROPHILS % 75.7 % (36.0-66.0); PLATELET COUNT, AUTOMATED 209 10^3/uL (150-450); RED BLOOD COUNT 3.38 10^6/uL (4.30-6.10); WHITE BLOOD COUNT 7.8 10^3/uL (4.0-10.0)
[2021-12-19] MEDS: HEPARIN SOD (PORCINE) 5000UNITS/ML 1ML VIAL/SYRINGE SC SCH ×2 (08:49→20:56)
[2021-12-19] MEDS: ASCORBIC ACID 500 MG TAB PO SCH (08:49)
[2021-12-19] MEDS: DULoxetine 30MG CAPSULE (CYMBALTA) PO SCH (08:49)
[2021-12-19] MEDS: PANTOPRAZOLE 40MG TAB (PROTONIX) PO SCH (08:54)
[2021-12-19 09:00] VITALS: BP 121/68
[2021-12-19 09:02] VITALS: BP 121/63
[2021-12-19 09:04] VITALS: BP 133/72
[2021-12-19 09:26] LABS: ALBUMIN 3.2 GM/DL (3.2-5.2); ALT/SGPT 16 U/L (12-78); BILIRUBIN,TOTAL 0.5 MG/DL (0.2-1.0); BLOOD UREA NITROGEN 21 MG/DL (7-18); CALCIUM LEVEL 8.6 MG/DL (8.8-10.2); CARBON DIOXIDE LEVEL 25 MEQ/L (21-32); CHLORIDE LEVEL 108 MEQ/L (98-107); CREATININE FOR GFR 1.03 MG/DL (0.70-1.30); FREE T4 0.86 NG/DL (0.76-1.46); GLOMERULAR FILTRATION RATE > 60.0 (>42); GLUCOSE, FASTING 145 MG/DL (70-100); MAGNESIUM LEVEL 2.3 MG/DL (1.8-2.4); POTASSIUM SERUM 4.2 MEQ/L (3.5-5.1); SODIUM LEVEL 138 MEQ/L (136-145)
[2021-12-19] MEDS: MEMANTINE 5MG TABLET (NAMENDA) PO SCH (10:34)
[2021-12-19 14:00] VITALS: BP 149/76
[2021-12-19 17:00] VITALS: BP 149/77
[2021-12-19] MEDS: DONEPEZIL 5 MG TAB PO SCH (20:54)
[2021-12-19] MEDS: MAGNESIUM OXIDE 400MG TAB (MAG-OX) PO SCH (20:54)
[2021-12-19] MEDS: ACETAMINOPHEN TAB 650MG DOSE (2X325MG) PO PRN (20:55)
[2021-12-19] MEDS: ASPIRIN 81MG ENTERIC TABLET PO SCH (20:56)
[2021-12-19] MEDS: ATORVASTATIN 20 MG TAB PO SCH (20:56)
[2021-12-19] MEDS: TAMSULOSIN 0.4 MG CAP PO SCH (20:56)
[2021-12-19] MEDS: ATENOLOL 12.5MG PER 1/2 TABLET PO SCH (20:57)
[2021-12-20] VITALS (7 sets, daily range): BP systolic 125–175; BP diastolic 72–81
[2021-12-20] MEDS: NORCO, ANEXSIA 5/325MG TABLET (HYDROcodone/ACETAMINOPHEN) PO PRN (05:50)
[2021-12-20 06:07] LABS: BASO % 0.5 % (0.0-1.0); EOS # 0.1 10^3/uL (0.0-0.5); EOS % 2.3 % (0.0-3.0); HEMATOCRIT 32.3 % (42.0-52.0); HEMOGLOBIN 10.7 g/dl (13.5-17.5); LYMPH # 0.8 10^3/uL (1.5-5.0); MEAN CORPUSCULAR HEMOGLOBIN 29.6 pg (27.0-33.0); MEAN CORPUSCULAR HGB CONC 33.1 g/dl (32.0-36.5); MEAN CORPUSCULAR VOLUME 89.5 fl (80.0-96.0); MONO # 0.5 10^3/uL (0.0-0.8); MONO % 11.5 % (2.0-8.0); NEUTROPHILS # 2.9 10^3/uL (1.5-8.5); PLATELET COUNT, AUTOMATED 206 10^3/uL (150-450); RED BLOOD COUNT 3.61 10^6/uL (4.30-6.10); WHITE BLOOD COUNT 4.4 10^3/uL (4.0-10.0)
[2021-12-20 06:26] LABS: BLOOD UREA NITROGEN 17 MG/DL (7-18); CALCIUM LEVEL 8.8 MG/DL (8.8-10.2); CARBON DIOXIDE LEVEL 25 MEQ/L (21-32); CHLORIDE LEVEL 109 MEQ/L (98-107); CREATININE FOR GFR 0.92 MG/DL (0.70-1.30); GLOMERULAR FILTRATION RATE > 60.0 (>42); GLUCOSE, FASTING 134 MG/DL (70-100); MAGNESIUM LEVEL 2.5 MG/DL (1.8-2.4); POTASSIUM SERUM 3.9 MEQ/L (3.5-5.1); SODIUM LEVEL 138 MEQ/L (136-145)
[2021-12-20] MEDS: ASCORBIC ACID 500 MG TAB PO SCH (08:23)
[2021-12-20] MEDS: MEMANTINE 5MG TABLET (NAMENDA) PO SCH (08:23)
[2021-12-20] MEDS: DULoxetine 30MG CAPSULE (CYMBALTA) PO SCH (08:23)
[2021-12-20] MEDS: HEPARIN SOD (PORCINE) 5000UNITS/ML 1ML VIAL/SYRINGE SC SCH ×2 (08:23→20:04)
[2021-12-20] MEDS: PANTOPRAZOLE 40MG TAB (PROTONIX) PO SCH (08:23)
[2021-12-20] MEDS ORDERED: NS 500 ML IV ONE (09:45)
[2021-12-20] MEDS: ACETAMINOPHEN TAB 650MG DOSE (2X325MG) PO PRN (15:32)
[2021-12-20 15:54] LABS: CORTISOL AM 19.4 UG/DL (4.3-22.4)
[2021-12-20] MEDS: ATENOLOL 12.5MG PER 1/2 TABLET PO SCH (19:59)
[2021-12-20] MEDS: ATORVASTATIN 20 MG TAB PO SCH (20:00)
[2021-12-20] MEDS: ASPIRIN 81MG ENTERIC TABLET PO SCH (20:03)
[2021-12-20] MEDS: TAMSULOSIN 0.4 MG CAP PO SCH (20:03)
[2021-12-20] MEDS: MAGNESIUM OXIDE 400MG TAB (MAG-OX) PO SCH (20:03)
[2021-12-20] MEDS: DONEPEZIL 5 MG TAB PO SCH (20:03)
[2021-12-21 04:24] VITALS: BP 146/76
[2021-12-21 06:52] LABS: BASO % 0.8 % (0.0-1.0); EOS # 0.1 10^3/uL (0.0-0.5); EOS % 3.5 % (0.0-3.0); HEMATOCRIT 30.6 % (42.0-52.0); HEMOGLOBIN 10.3 g/dl (13.5-17.5); LYMPH # 0.8 10^3/uL (1.5-5.0); LYMPH % 20.7 % (24.0-44.0); MEAN CORPUSCULAR HEMOGLOBIN 30.3 pg (27.0-33.0); MEAN CORPUSCULAR HGB CONC 33.7 g/dl (32.0-36.5); MONO # 0.4 10^3/uL (0.0-0.8); MONO % 11.4 % (2.0-8.0); NEUTROPHILS # 2.3 10^3/uL (1.5-8.5); NEUTROPHILS % 62.8 % (36.0-66.0); PLATELET COUNT, AUTOMATED 201 10^3/uL (150-450); WHITE BLOOD COUNT 3.7 10^3/uL (4.0-10.0)
[2021-12-21 07:25] LABS: BLOOD UREA NITROGEN 16 MG/DL (7-18); CALCIUM LEVEL 8.6 MG/DL (8.8-10.2); CARBON DIOXIDE LEVEL 23 MEQ/L (21-32); CHLORIDE LEVEL 110 MEQ/L (98-107); CREATININE FOR GFR 0.83 MG/DL (0.70-1.30); GLOMERULAR FILTRATION RATE > 60.0 (>42); GLUCOSE, FASTING 135 MG/DL (70-100); MAGNESIUM LEVEL 2.2 MG/DL (1.8-2.4); POTASSIUM SERUM 3.8 MEQ/L (3.5-5.1); SODIUM LEVEL 140 MEQ/L (136-145)
[2021-12-21] MEDS: ASCORBIC ACID 500 MG TAB PO SCH (08:17)
[2021-12-21] MEDS: MEMANTINE 5MG TABLET (NAMENDA) PO SCH (08:17)
[2021-12-21] MEDS: HEPARIN SOD (PORCINE) 5000UNITS/ML 1ML VIAL/SYRINGE SC SCH (08:17)
[2021-12-21] MEDS: PANTOPRAZOLE 40MG TAB (PROTONIX) PO SCH (08:17)
[2021-12-21] MEDS: DULoxetine 30MG CAPSULE (CYMBALTA) PO SCH (08:17)
[2021-12-21] MEDS: ACETAMINOPHEN TAB 650MG DOSE (2X325MG) PO PRN (08:18)
[2021-12-21] MEDS: NORCO, ANEXSIA 5/325MG TABLET (HYDROcodone/ACETAMINOPHEN) PO PRN (09:50)
[2021-12-21] MEDS ORDERED: TRAZ-252 PO (10:28)
[2021-12-21] MEDS ORDERED: traZODone 50 MG TAB PO SCH (11:15)
== END 2021-12-21 13:58 | disposition home or self-care (01) ==
LOC: M ED 01:50 → EDBD 01:50 → M ED INP 01:51 → ENRESERV 14:53 → M MSPAV 16:55
PROVIDERS: ADMIT Internal Medicine; ATTEND Family Medicine
DX: I95.1 Orthostatic hypotension (principal); C61 Malignant neoplasm of prostate; C79.51 Secondary malignant neoplasm of bone; F03.90 Unspecified dementia, unspecified severity, without behavioral disturbance, psychotic disturbance, mood disturbance, and anxiety; E11.9 Type 2 diabetes mellitus without complications; I25.10 Atherosclerotic heart disease of native coronary artery without angina pectoris; I25.2 Old myocardial infarction; K21.9 Gastro-esophageal reflux disease without esophagitis; F32.A Depression, unspecified; F41.9 Anxiety disorder, unspecified; Z86.16 Personal history of COVID-19; Z79.82 Long term (current) use of aspirin; Z79.84 Long term (current) use of oral hypoglycemic drugs; Z79.899 Other long term (current) drug therapy
CPT/HCPCS: 36415; 70450; 71045; 78306; 80048; 80053; 82077; 82533; 82550; 82553; 83735; 84439; 84443; 84484; 85025; 87631; 93005; 93041; 93306; 94760; 96361; 96372; 96374; 96376; 97116; 97162; 97165; 97530; 97535; 99285; A9503; G0378; J1644

== ENCOUNTER → 2022-03-08 | Outpatient (CLI) | payer MEDICARE ==
[~2022-03-08] MED LIST changes: +ALBU8.5H INH; +ATOR40TA75 PO; +C 50TAB PO; +DONE10TA90 PO; +DULO60CA35 PO; +FENT12DI8 TD; +FLORCAP6 PO; +GASTROGRAFIN SOLUTION 30ML (Q9963) As Ordered ONE; +HYDR-4571 PO; +ISOVUE-370 76% 100ML VIAL As Ordered ONE; +MAGN400T35 PO; +METF-838 PO; +MIRA1POW3 PO; +NEXI40CA PO; +TRAZ-252 PO
== END ==
LOC: M RAD 12:14
PROVIDERS: ATTEND Physician Assistant
DX: C61 Malignant neoplasm of prostate (principal); C79.51 Secondary malignant neoplasm of bone; N28.1 Cyst of kidney, acquired
CPT/HCPCS: 71260; 74177; Q9963; Q9967

== ENCOUNTER → 2022-03-13 | Outpatient (CLI) | payer MEDICARE ==
[~2022-03-13] MED LIST changes: -GASTROGRAFIN SOLUTION 30ML (Q9963) As Ordered ONE; -ISOVUE-370 76% 100ML VIAL As Ordered ONE
== END ==
LOC: M RAD 11:49
PROVIDERS: ATTEND Physician Assistant
DX: C61 Malignant neoplasm of prostate (principal); C79.51 Secondary malignant neoplasm of bone; Z53.9 Procedure and treatment not carried out, unspecified reason

== ENCOUNTER 2022-04-12 19:12 | Inpatient (IN) | payer OTHER, MEDICARE ==
[~2022-04-12] VITALS: Ht 185.4 cm; Wt 77.5 kg
[2022-04-12 20:01] LABS: BASO % 0.7 % (0.0-1.0); EOS # 0.1 10^3/uL (0.0-0.5); EOS % 3.1 % (0.0-3.0); HEMATOCRIT 34.1 % (42.0-52.0); HEMOGLOBIN 11.7 g/dl (13.5-17.5); MEAN CORPUSCULAR HEMOGLOBIN 30.9 pg (27.0-33.0); MEAN CORPUSCULAR HGB CONC 34.3 g/dl (32.0-36.5); MONO # 0.6 10^3/uL (0.0-0.8); MONO % 14.5 % (2.0-8.0); NEUTROPHILS # 2.4 10^3/uL (1.5-8.5); NEUTROPHILS % 57.2 % (36.0-66.0); PLATELET COUNT, AUTOMATED 234 10^3/uL (150-450); RED BLOOD COUNT 3.79 10^6/uL (4.30-6.10); WHITE BLOOD COUNT 4.2 10^3/uL (4.0-10.0)
[2022-04-12 20:24] LABS: ALBUMIN 3.5 G/DL (3.2-5.2); ALKALINE PHOSPHATASE 99 U/L (46-116); ALT/SGPT 14 U/L (7.0-40); AST/SGOT 15 U/L (<34); BILIRUBIN,DIRECT < 0.1 MG/DL (<0.4); BILIRUBIN,TOTAL 0.2 MG/DL (0.3-1.2); BLOOD UREA NITROGEN 22 MG/DL (9-23); CALCIUM LEVEL 9.2 MG/DL (8.3-10.6); CARBON DIOXIDE LEVEL 23 MMOL/L (20-31); CHLORIDE LEVEL 107 MMOL/L (98-107); CK-MB VALUE MASS 1.9 NG/ML (<3.6); CPK CREATINE PHOSPHOKINASE 105 U/L (46-171); CREATININE FOR GFR 0.94 MG/DL (0.70-1.30); GLOMERULAR FILTRATION RATE > 60.0 (>42); GLUCOSE, FASTING 170 MG/DL (74-106); POTASSIUM SERUM 4.2 MMOL/L (3.5-5.1); SODIUM LEVEL 140 MMOL/L (136-145); THYROID STIMULATING HORMONE 2.085 uIU/ML (0.55-4.78); TOTAL PROTEIN 6.3 G/DL (5.7-8.2)
[2022-04-12] MEDS ORDERED: DULO1CAP5 PO (22:21)
[2022-04-12] MEDS ORDERED: HYDR-3716 PO (22:21)
[2022-04-12] MEDS ORDERED: QUET50TA4 PO (22:21)
[2022-04-12] MEDS ORDERED: LORA1TAB4 PO (22:23)
[2022-04-12] MEDS ORDERED: HOME MED LIST COMPLETE! XX SCH (22:25)
[2022-04-12] MEDS ORDERED: MED REC COMMENT (22:25)
[2022-04-12] MEDS ORDERED: BISACODYL 10 MG SUPP PR PRN (23:35)
[2022-04-12] MEDS ORDERED: ONDANSETRON 4MG ORAL DISINTEGRATING TAB PO PRN (23:35)
[2022-04-13 01:53] VITALS: BP 132/84
[2022-04-13] MEDS: LORazepam 1 MG TAB PO PRN ×5 (02:13→20:11)
[2022-04-13] MEDS: MORPHINE 10MG/0.5ML ORAL CONCENTRATE SOLUTION U/D SL PRN ×4 (07:34→20:14)
[2022-04-13] MEDS ORDERED: traZODone 50 MG TAB PO SCH (09:00)
[2022-04-13] MEDS: QUEtiapine FUMARATE 25 MG TAB PO SCH ×2 (10:28→20:09)
[2022-04-13] MEDS: ACETAMINOPHEN TAB 650MG DOSE (2X325MG) PO PRN (20:10)
[2022-04-13] MEDS: traZODone 50 MG TAB PO SCH (20:11)
[2022-04-13] MEDS ORDERED: QUEtiapine FUMARATE 25 MG TAB PO SCH (21:00)
[2022-04-14] MEDS: traZODone 50 MG TAB PO SCH ×2 (09:55→19:30)
[2022-04-14] MEDS: LORazepam 1 MG TAB PO PRN ×2 (09:55→17:54)
[2022-04-14] MEDS: QUEtiapine FUMARATE 25 MG TAB PO SCH ×2 (09:55→19:30)
[2022-04-14] MEDS: MORPHINE 10MG/0.5ML ORAL CONCENTRATE SOLUTION U/D SL PRN ×2 (09:56→17:54)
[2022-04-14] MEDS ORDERED: PILL CUTTER 1 EACH XX PRN (17:50)
[2022-04-14] MEDS: ACETAMINOPHEN TAB 650MG DOSE (2X325MG) PO PRN (19:32)
[2022-04-15] MEDS: traZODone 50 MG TAB PO SCH ×2 (07:42→19:30)
[2022-04-15] MEDS: LORazepam 1 MG TAB PO PRN ×4 (07:42→19:30)
[2022-04-15] MEDS: QUEtiapine FUMARATE 25 MG TAB PO SCH ×2 (07:42→19:30)
[2022-04-15] MEDS: MORPHINE 10MG/0.5ML ORAL CONCENTRATE SOLUTION U/D SL PRN ×2 (10:20→13:17)
[2022-04-15] MEDS: oxyCODONE 5MG TAB PO PRN (14:52)
[2022-04-16] MEDS: QUEtiapine FUMARATE 25 MG TAB PO SCH ×2 (09:34→21:08)
[2022-04-16] MEDS: traZODone 50 MG TAB PO SCH ×2 (09:35→21:08)
[2022-04-16] MEDS: oxyCODONE 5MG TAB PO PRN ×2 (09:35→21:08)
[2022-04-16] MEDS: LORazepam 1 MG TAB PO PRN ×3 (09:35→15:25)
[2022-04-16] MEDS: MORPHINE 10MG/0.5ML ORAL CONCENTRATE SOLUTION U/D SL PRN (15:12)
[2022-04-16] MEDS: LORazepam 2 MG TAB PO PRN (21:08)
[2022-04-17] MEDS: oxyCODONE 5MG TAB PO PRN (05:46)
[2022-04-17] MEDS: LORazepam 2 MG TAB PO PRN ×2 (05:47→11:03)
[2022-04-17] MEDS: QUEtiapine FUMARATE 25 MG TAB PO SCH (11:02)
[2022-04-17] MEDS: MORPHINE 10MG/0.5ML ORAL CONCENTRATE SOLUTION U/D SL PRN (11:02)
[2022-04-17] MEDS: traZODone 50 MG TAB PO SCH ×2 (11:03→17:29)
[2022-04-17] MEDS ORDERED: HALOPERIDOL 5MG/ML VIAL (J1630 PER 1) IM PRN (13:10)
[2022-04-17] MEDS: oxyCODONE 5MG TAB PO SCH ×2 (14:22→17:29)
[2022-04-18] MEDS: DULoxetine 30MG CAPSULE (CYMBALTA) PO SCH ×3 (00:30→19:36)
[2022-04-18] MEDS: QUEtiapine FUMARATE 25 MG TAB PO SCH ×3 (00:31→19:37)
[2022-04-18] MEDS: traZODone 50 MG TAB PO SCH ×4 (00:31→19:36)
[2022-04-18] MEDS: oxyCODONE 5MG TAB PO SCH ×5 (00:31→22:58)
[2022-04-18] MEDS: MORPHINE 10MG/0.5ML ORAL CONCENTRATE SOLUTION U/D SL PRN ×2 (04:33→08:22)
[2022-04-18] MEDS: CEPHALEXIN 500 MG CAP PO SCH ×3 (18:00→22:58)
[2022-04-19] MEDS: oxyCODONE 5MG TAB PO SCH ×3 (05:46→17:48)
[2022-04-19] MEDS: CEPHALEXIN 500 MG CAP PO SCH ×3 (05:46→17:48)
[2022-04-19] MEDS: DULoxetine 30MG CAPSULE (CYMBALTA) PO SCH ×2 (09:00→21:44)
[2022-04-19] MEDS: QUEtiapine FUMARATE 25 MG TAB PO SCH ×2 (09:01→21:44)
[2022-04-19] MEDS: traZODone 50 MG TAB PO SCH ×3 (09:01→21:44)
[2022-04-20] MEDS: oxyCODONE 5MG TAB PO SCH ×4 (01:19→17:41)
[2022-04-20] MEDS: CEPHALEXIN 500 MG CAP PO SCH ×4 (01:20→17:41)
[2022-04-20] MEDS: DULoxetine 30MG CAPSULE (CYMBALTA) PO SCH ×2 (09:31→19:43)
[2022-04-20] MEDS: traZODone 50 MG TAB PO SCH ×3 (09:31→19:38)
[2022-04-20] MEDS: QUEtiapine FUMARATE 25 MG TAB PO SCH ×2 (09:31→19:38)
[2022-04-20] MEDS: MORPHINE 10MG/0.5ML ORAL CONCENTRATE SOLUTION U/D SL PRN (20:22)
[2022-04-21] MEDS: BENZTROPINE 1 MG TAB PO SCH ×3 (00:59→22:14)
[2022-04-21] MEDS: oxyCODONE 5MG TAB PO SCH ×4 (01:00→17:15)
[2022-04-21] MEDS: CEPHALEXIN 500 MG CAP PO SCH ×5 (01:00→23:58)
[2022-04-21] MEDS: traZODone 50 MG TAB PO SCH ×3 (10:01→22:14)
[2022-04-21] MEDS: DULoxetine 30MG CAPSULE (CYMBALTA) PO SCH ×2 (10:01→22:14)
[2022-04-21] MEDS: QUEtiapine FUMARATE 25 MG TAB PO SCH ×2 (10:01→22:14)
[2022-04-22] MEDS: oxyCODONE 5MG TAB PO SCH ×4 (00:06→18:07)
[2022-04-22] MEDS: CEPHALEXIN 500 MG CAP PO SCH ×3 (06:02→18:06)
[2022-04-22] MEDS: traZODone 50 MG TAB PO SCH ×3 (09:00→21:00)
[2022-04-22] MEDS: DULoxetine 30MG CAPSULE (CYMBALTA) PO SCH ×2 (10:06→22:24)
[2022-04-22] MEDS: BENZTROPINE 1 MG TAB PO SCH ×2 (10:06→22:24)
[2022-04-22] MEDS: QUEtiapine FUMARATE 25 MG TAB PO SCH ×2 (10:06→22:24)
[2022-04-22] MEDS: MORPHINE 10MG/0.5ML ORAL CONCENTRATE SOLUTION U/D SL PRN (10:08)
[2022-04-22] MEDS: ACETAMINOPHEN TAB 650MG DOSE (2X325MG) PO PRN (18:08)
[2022-04-23] MEDS: CEPHALEXIN 500 MG CAP PO SCH ×4 (00:27→18:27)
[2022-04-23] MEDS: oxyCODONE 5MG TAB PO SCH ×4 (00:29→18:27)
[2022-04-23] MEDS: traZODone 50 MG TAB PO SCH ×3 (09:48→20:30)
[2022-04-23] MEDS: BENZTROPINE 1 MG TAB PO SCH ×2 (09:48→20:28)
[2022-04-23] MEDS: DULoxetine 30MG CAPSULE (CYMBALTA) PO SCH ×2 (09:48→20:28)
[2022-04-23] MEDS: QUEtiapine FUMARATE 25 MG TAB PO SCH ×2 (09:49→20:28)
[2022-04-24] MEDS: CEPHALEXIN 500 MG CAP PO SCH ×4 (00:58→18:09)
[2022-04-24] MEDS: oxyCODONE 5MG TAB PO SCH ×4 (00:58→18:09)
[2022-04-24] MEDS: QUEtiapine FUMARATE 25 MG TAB PO SCH ×2 (09:11→20:21)
[2022-04-24] MEDS: DULoxetine 30MG CAPSULE (CYMBALTA) PO SCH ×2 (09:11→20:21)
[2022-04-24] MEDS: BENZTROPINE 1 MG TAB PO SCH ×2 (09:11→20:21)
[2022-04-24] MEDS: traZODone 50 MG TAB PO SCH ×3 (09:11→20:21)
[2022-04-25] MEDS: CEPHALEXIN 500 MG CAP PO SCH ×3 (00:07→12:34)
[2022-04-25] MEDS: oxyCODONE 5MG TAB PO SCH ×4 (00:07→17:31)
[2022-04-25] MEDS: QUEtiapine FUMARATE 25 MG TAB PO SCH ×2 (08:26→20:13)
[2022-04-25] MEDS: BENZTROPINE 1 MG TAB PO SCH ×2 (08:27→20:13)
[2022-04-25] MEDS: DULoxetine 30MG CAPSULE (CYMBALTA) PO SCH ×2 (08:27→20:13)
[2022-04-25] MEDS: traZODone 50 MG TAB PO SCH ×3 (08:27→20:13)
[2022-04-26] MEDS: oxyCODONE 5MG TAB PO SCH ×4 (00:26→18:25)
[2022-04-26] MEDS: traZODone 50 MG TAB PO SCH ×3 (09:24→21:00)
[2022-04-26] MEDS: DULoxetine 30MG CAPSULE (CYMBALTA) PO SCH ×2 (09:25→21:51)
[2022-04-26] MEDS: QUEtiapine FUMARATE 25 MG TAB PO SCH ×2 (09:25→21:51)
[2022-04-26] MEDS: BENZTROPINE 1 MG TAB PO SCH ×2 (09:25→21:51)
[2022-04-27] MEDS: oxyCODONE 5MG TAB PO SCH ×4 (05:02→18:28)
[2022-04-27] MEDS: DULoxetine 30MG CAPSULE (CYMBALTA) PO SCH ×2 (09:31→20:54)
[2022-04-27] MEDS: BENZTROPINE 1 MG TAB PO SCH ×2 (09:32→20:54)
[2022-04-27] MEDS: QUEtiapine FUMARATE 25 MG TAB PO SCH ×2 (09:32→20:54)
[2022-04-27] MEDS: traZODone 50 MG TAB PO SCH ×3 (09:32→20:54)
[2022-04-27] MEDS: MORPHINE 10MG/0.5ML ORAL CONCENTRATE SOLUTION U/D SL PRN (22:11)
[2022-04-28] MEDS: oxyCODONE 5MG TAB PO SCH ×4 (05:43→19:12)
[2022-04-28] MEDS: DULoxetine 30MG CAPSULE (CYMBALTA) PO SCH ×2 (09:40→22:19)
[2022-04-28] MEDS: traZODone 50 MG TAB PO SCH ×3 (09:40→22:20)
[2022-04-28] MEDS: BENZTROPINE 1 MG TAB PO SCH ×2 (09:40→22:19)
[2022-04-28] MEDS: QUEtiapine FUMARATE 25 MG TAB PO SCH ×2 (09:40→22:20)
[2022-04-29] MEDS: oxyCODONE 5MG TAB PO SCH ×4 (05:42→17:07)
[2022-04-29] MEDS: DULoxetine 30MG CAPSULE (CYMBALTA) PO SCH ×2 (08:00→21:25)
[2022-04-29] MEDS: traZODone 50 MG TAB PO SCH ×3 (08:00→21:26)
[2022-04-29] MEDS: QUEtiapine FUMARATE 25 MG TAB PO SCH ×2 (08:00→21:26)
[2022-04-29] MEDS: BENZTROPINE 1 MG TAB PO SCH ×2 (08:01→21:25)
[2022-04-30] MEDS: oxyCODONE 5MG TAB PO SCH ×3 (06:09→12:00)
[2022-04-30] MEDS: traZODone 50 MG TAB PO SCH (08:44)
[2022-04-30] MEDS: DULoxetine 30MG CAPSULE (CYMBALTA) PO SCH (08:45)
[2022-04-30] MEDS: QUEtiapine FUMARATE 25 MG TAB PO SCH (08:46)
[2022-04-30] MEDS: MORPHINE 10MG/0.5ML ORAL CONCENTRATE SOLUTION U/D SL PRN (08:46)
[2022-04-30] MEDS: BENZTROPINE 1 MG TAB PO SCH (08:48)
[2022-04-30] MEDS ORDERED: TRAZ-252 PO (10:51)
[2022-04-30] MEDS ORDERED: MORP1SOL5 PO (10:52)
[2022-04-30] MEDS ORDERED: ATIV1TAB10 PO (10:52)
[2022-04-30] MEDS ORDERED: HYOS125TA PO (10:52)
[2022-04-30] MEDS ORDERED: QUET50TA4 PO (10:52)
[2022-04-30] MEDS ORDERED: OXYC-517 PO (10:52)
[2022-04-30] MEDS ORDERED: BENZ-52 PO (10:52)
== END 2022-04-30 12:31 | disposition hospice, home (50) | DRG 884 ==
LOC: M ED 19:12 → EDBD 19:12 → M ED INP 04-13 00:48 → M MSPAV 04-13 02:22
PROVIDERS: ADMIT Family Medicine; ATTEND Internal Medicine Nephrology
DX: F03.918 Unspecified dementia, unspecified severity, with other behavioral disturbance (principal); C79.51 Secondary malignant neoplasm of bone; N39.0 Urinary tract infection, site not specified; K21.9 Gastro-esophageal reflux disease without esophagitis; I10 Essential (primary) hypertension; I25.10 Atherosclerotic heart disease of native coronary artery without angina pectoris; Z51.5 Encounter for palliative care; C61 Malignant neoplasm of prostate; F32.A Depression, unspecified; Z95.2 Presence of prosthetic heart valve; J45.909 Unspecified asthma, uncomplicated; Z79.899 Other long term (current) drug therapy; Z88.8 Allergy status to other drugs, medicaments and biological substances; Z98.41 Cataract extraction status, right eye; Z98.42 Cataract extraction status, left eye